=== PATIENT | male | born 1935 | race Caucasian/White ===

== ENCOUNTER 2024-12-09 14:15 | Outpatient (REF) | payer MEDICARE, MEDICAID, SELFPAY ==
[2024-12-09 18:27] LABS: Anion Gap 11 (12-20); Blood Urea Nitrogen 20 mg/dL (9-16); Calcium 9.5 mg/dL (8.4-10.2); Carbon Dioxide 28 mmol/L (22-29); Chloride 105 mmol/L (96-108); Estimated Glomerular Filt Rate > 60; Potassium 4.1 mmol/L (3.3-5.1); Sodium 140 mmol/L (135-145)
--- OUTSIDE RECORDS SUMMARY | 2024-12-09 18:41 | XMS_ITS | Encounter Summary ---
Author Organization [facility] Address [address] [facility] [address] [place] [address] Phone Care Team Providers Care Stopperer Assembler Name Role Phone Elena Chowdary MD Primary Care Provider [phone] Reason for Visit * Reason Comments Med Refill Encounter Details Date Type Department Care Team (Late st Contact Info) Description 10/28/2024 Refill [facility] [address] [facility] [address] [place] [id number] Jared Schwartz MD [address] [address] Social History Tobacco Use Types [...] Visit [facility] [address] [address] Yumiko Grande ARNP [address] [address] documented as of this encounter Visit Diagnoses Not on filedocumented in this encounter Care Teams Stopperer Assembler Relationship Specialty Start Date End Date Elena Chowdary MD [address] [place] [address], [address] [place] [address] PCP - General 10/25/20 documented as of this encounter
--- OUTSIDE RECORDS SUMMARY | 2024-12-09 18:41 | XMS_ITS | Clinical Summary ---
Author Organization [address] [place] [address] Address [address] [place] [address] Phone Care Team Providers Care Telecommunications Project Manager Name Role Phone Elena Chowdary MD Primary Care Provider [phone] Allergies Active Allergy Reactions Criticality Noted Date [...] Maintenance Insurance [employer] Care Teams Telecommunications Project Manager Relationship Specialty Start Date End Date Elena Chowdary MD PCP - General 06/20/17
--- OUTSIDE RECORDS SUMMARY | 2024-12-09 18:41 | XMS_ITS | Clinical Summary ---
Author Organization [facility] Address [address] [facility] [address] [place] [address] Phone Care Team Providers Care Apiculture Teacher Name Role Phone Elena Chowdary MD Primary Care Provider [phone] Allergies Active Allergy Reactions Criticality Noted Date [...] [place] [address] [place] [id number] Jared Schwartz MD from Last 3 Months [...] Office Visit [facility] [address] [address] Yumiko Grande ARNP [address] [phone] Health Maintenance Due Date Last Done Comments Pneumococcal Vaccine: 65+ Ye ars (2 of 2 - PCV) 12/13/2012 12/14/2011 Influenza Vaccine (#1) 2024 Hepatitis B Vaccine Aged Out No longe r eligible based on patient's age to complete this topic Insurance [employer] Care Teams Apiculture Teacher Relationship Specialty Start Date End Date Elena Chowdary MD [address] [place] [address], [address] [place] [address] PCP - General 10/25/20
== END 2024-12-09 14:16 | disposition home or self-care (01) ==
LOC: HO.HKASLDS 14:15
PROVIDERS: PCP Internal Medicine; Visit Provider Internal Medicine Nephrology
DX: I10 Essential (primary) hypertension (principal); Z79.899 Other long term (current) drug therapy
CPT/HCPCS: 36415; 80051; 82310; 82565; 84520; 99212

== ENCOUNTER 2024-12-09 14:15 | Outpatient (AMB) | payer MEDICARE, MEDICAID, SELFPAY ==
--- NOTE | 2024-12-09 14:18 | HO.NEPHOV_ITS ---
Vital Signs 12/09/24 14:22 Height 5 ft Weight 150 lb BMI 29.3 BP 140/90 H Blood Pressure Location Lt brachial Position Sitting Pulse 69 Pulse Source Pulse Oximeter Pulse Oximetry (%) 97 Oxygen Delivery Method Room Air Intake Visit Reasons: Transferring care from [facility] [employer] Repairer Required: No Allergies codeine Allergy (Verified 12/09/24 14:26) Unknown shellfish derived Allergy (Verified 12/09/24 14:21) Unknown HPI Comments Details: I had the pleasure of seeing Margie in follow-up her hypertension and renal cyst. She does not have any hematuria, urinary infections, flank pain or edema. She has no night sweats, fever or weight loss. She is compliant with her antihypertensive medications and her blood pressure has been goal. She does not take excessive nonsteroidal anti-inflammatories and maintain good hydration. She denied any headache ,double vision ,chest pressure, shortness of breath, proximal nocturnal dyspnea or orthostatic symptoms. She is compliant with her CPAP for SHANTEL. Otherwise she feels well. [facility] Medical History (Updated 12/09/24 @ 14:45 by Néstor Edwards MD) Renal cyst Hypertension Surgical History (Updated 12/09/24 @ 14:20 by Jacqui Howard MA) History of surgery on arm History of back surgery Family History (Updated 12/09/24 @ 14:19 by Jacqui Howard MA) Brother Heart disease Father Heart disease Social History (Updated 12/09/24 @ 14:18 by Jacqui Howard MA) Alcohol intake: never Patient Tobacco Use Status: Never used Tobacco Review of Systems Const All systems reviewed & are unremarkable except as noted in HPI and below Physical Exam Vital Signs: Last Vital Signs Pulse 69 12/09/24 14:22 BP 140/90 H 12/09/24 14:22 Pulse Ox 97 12/09/24 14:22 Oxygen Delivery Method Room Air 12/09/24 14:22 BMI result Body Mass Index 29.3 Const General: comfortable and no acute distress Orientation/consciousness: patient oriented x3 HEENT Head: Yes normocephalic Mouth: Normal oral and palatal mucosa present Eyes EOM: EOMs intact bilaterally Neck Neck: Yes supple Resp Auscultation: clear to auscultation bilaterally Cardio Jugular venous distension: no JVD Rate: regular rate GI Palpation (GI): Soft to palpation Auscultation: normal bowel sounds Skin General skin exam: no rashes or lesions noted Neuro General: patient oriented x3 and moves all extremities Extrem General: Yes no pedal edema Results Reviewed Nephrology Results: Sodium 140 mmol/L (135-145) 12/09/24 Potassium 4.1 mmol/L (3.3-5.1) 12/09/24 Chloride 105 mmol/L (96-108) 12/09/24 Carbon Dioxide 28 mmol/L (22-29) 12/09/24 BUN 20 mg/dL (9-16) H 12/09/24 Creatinine 0.77 mg/dL (0.5-1.4) 12/09/24 Calcium 9.5 mg/dL (8.4-10.2) 12/09/24 Assessment & Plan Assessment & Plan (1) Hypertension: Code(s): I10 - Essential (primary) hypertension Category: Medical Qualifiers: Hypertension type: primary hypertension Qualified Code(s): I10 - Essential (primary) hypertension Plan Margie has longstanding hypertension. Her weight is stable. She is on a low- sodium diet. Her renal functions are stable. She is on a low-sodium diet. She is compliant CPAP. Her volume status is optimal. She can continue current dose of labetalol, losartan and amlodipine. I shall arrange a follow-up renal ultrasound for renal cyst after next visit. She should maintain good hydration and minimize NSAID's. I did not make any medication changes today. I shall follow in 6 months unless there is any need prior to that. All questions answered. Orders: Orders Blood Urea Nitrogen 12/09/24 I10 - Essential (primary) hypertension Electrolytes 12/09/24 I10 - Essential (primary) hypertension Creatinine 12/09/24 I10 - Essential (primary) hypertension Calcium 12/09/24 I10 - Essential (primary) hypertension Coding Level of Care Code Est Pt Level 4 (53632) Diagnoses Primary hypertension I10 Hypertension type: primary hypertension
[2024-12-09 14:22] VITALS: BP 140/90; PULSE 69; O2SAT 97; BMI 29.3
--- OUTSIDE RECORDS SUMMARY | 2024-12-09 17:54 | XMS_ITS | Clinical Summary ---
Author Organization [address] [place] [address] [address] [place] [address] Phone Care Team Providers Care Locator Name Role Phone Elena Chowdary MD Primary Care Provider [phone] Allergies Active Allergy Reactions Criticality Noted Date Comments Codeine 08/30/2018 Shellfish Containing Products 2017 Medications cholecalciferol (VITAMIN D-3) 50 mcg (2,000 unit) capsule Take by mouth. Active budesonide-form oteroL (SYMBICORT) 80-4.5 mcg/actuation inhaler Inhale 2 Puffs into the lungs 2 times daily. Active omeprazole (PRILOSEC) 20 mg tablet,delayed release (DR/EC) Take 20 mg by mouth daily. Active multivitamin (MULTIPLE VITAMINS ORAL) Take by mouth. Active losartan (COZAAR) 50 mg tablet Take 1.5 tablets (75 mg total) by mouth 1 (one) time each day. Active aspirin 81 mg EC tablet Take 81 mg by mouth daily. Active amLODIPine (NORVASC) 5 mg tablet Take 5 mg by mouth daily. Active simvastatin (ZOCOR) 20 mg tablet Take 1 tablet (20 mg total) by mouth at bedtime. Active labetaloL (NORMODYNE) 200 mg tablet Take 1 Tab by mouth 2 times daily. 09/19/2018 Active Active Problems Problem Noted Date Diagnosed Date SHANTEL on CPAP 08/11/2024 Overview (08/11/2024): f/u Dr. Telles Essential hypertension 05/30/2023 Overview (08/11/2024): Last Assessment & Plan: Patient's blood pressure is well controlled on recheck. Her blood pressures been well controlled on chart review. She does admit that she has houseguest currently who is somewhat stressful for her. Continue her beta-duane, calcium channel duane and ARB. Assessment & Plan (08/21/2024 2:20 PM EST): Well-controlled during today's exam with a reading of 124/78.I have made no changes to her medications. She will continue on her current dose of amlodipine, losartan and labetalol. Educated on the importance of diet lifestyle to help further assist in reducing blood pressure. The patient was encouraged to follow low-salt low-fat diet, make purposeful strides towards weight loss, and engage in routine aerobic exercise as tolerated. Hyperlipidemia 05/30/2023 Overview (08/11/2024): Last Assessment & Plan: Well-controlled lipid profile on current dose statin. continue the same. Assessment & Plan (08/21/2024 2:21 PM EST): Continue on her current dose of statin therapy and be mindful of her dietary fat intake. Can consider updating fasting lipid profile prior to her next in office visit list already performed by her PCP. 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 She has no symptoms referable to her mitral stenosis. She will notify me if she develops any palpitations, shortness of breath or chest discomfort. Otherwise, we will continue periodic surveillance with an updated echocardiogram before her next visit. Assessment & Plan (08/21/2024 2:21 PM EST): Recent echocardiogram updated in May 2024 as outlined above. This did reveal mild to moderate mitral stenosis and mild regurgitation as outlined above. At this time patient remains asymptomatic. Will consider updating surveillance echocardiogram in 1 year to further evaluate progression. 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 Given her advanced age, she is unlikely to reach operative size and/or be an operative candidate. The patient understands and accepts this. We will continue periodic surveillance of her aorta on echocardiograms given her mitral stenosis. Pulmonary arterial hypertension 09/19/2021 Medical History Medical History Date Comments SHANTEL on CPAP DX:SHANTEL on CPAP; COMMENT: f/u Dr. Telles Family History Medical History Relation Name Comments cabg Brother heart ailment Father Relation Name Status Comments Brother Father Social History Tobacco Use Types Packs/Day Years Used Date Smoking Tobacco: Never Smokeless Tobacco: Never Alcohol Use Standard Drinks/Week Comments Not Currently 0 (1 standard drink = 0.6 oz pur e alcohol) Comments Unknown Sex and Gender Information Value Date Recorded Sex Assigned at Not on file Legal Sex Female 1:06 AM EST Gender Identity Not on file Sexual Orientation Not on file Obstetrics History Last Filed Vital Signs Vital Sign Reading Time Taken Comments Blood Pressure 124/78 08/21/2024 1:47 PM EST Pulse 71 08/21/2024 1:47 PM EST Temperature - - Respiratory Rate - - Oxygen Saturation 98% 08/21/2024 1:47 PM EST Inhaled Oxygen Concentration - - Weight 68.8 kg (151 lb 9.6 oz) 08/21/2024 1:47 P M EST Height 152.4 cm (5') 08/21/2024 1:47 PM EST Body Mass Index 29.61 08/21/2024 1:47 PM EST Plan of Treatment Health Maintenance Due Date Last Done Comments DTaP,Tdap,and Td Vaccines (1 - Tdap) 1954 RSV Immunization Patients 60+ Years Old (1 - 1-dose 75+ series) 2010 Pneumococcal Vaccine: 50+ Years (2 of 2 - PCV) 12/13/2012 12/14/2011 Zoster Vaccines (2 of 3) 09/15/2013 07/21/2013 Depression Screening 09/17/2022 Falls Risk Assessment 09/17/2022 Medicare Annual Wellness Visit 09/17/2022 Osteoporosis Screening (Bone Density Screening) 09/17/2022 Social Influencers of Health Screening 09/17/2022 Hypertension/CHF/CAD Annual BMP Blood Test 11/14/2023 Cholesterol Screening (Lipid Panel) 12/14/2026 12/14/2021 Influenza Vaccine Completed 07/21/2024, , 07/26/2022, Additional history exists COVID-19 Vaccine Completed 08/12/2024, , 09/20/2022, Additional history exists HIB Vaccines Aged Out No longer eligi ble based on patient's age to complete this topic HPV Vaccines Aged Out No longer eligi ble based on patient's age to complete this topic Hepatitis A Vaccines Aged Out No long er eligible based on patient's age to complete this topic Hepatitis B Vaccines Aged Out No long er eligible based on patient's age to complete this topic IPV Vaccines Aged Out No longer eligi ble based on patient's age to complete this topic MMR Vaccines Aged Out No longer eligi ble based on patient's age to complete this topic Meningococcal ACWY Vaccine Aged Out N o longer eligible based on patient's age to complete this topic Meningococcal B Vacine Aged Out No lo nger eligible based on patient's age to complete this topic RSV Immunization Patients Under 20 months Aged Out No longer eligible based on patient's age to complete this topic Varicella Vaccines Aged Out No longer eligible based on patient's age to complete this topic Procedures Procedure Name Priority Date/Time Associated Diagnosis Comments LIPID PANEL Routine 12/14/2021 from Last 3 Months or Most Recently Relevant to Health Maintenance Results * (ABNORMAL) Lipid panel (12/14/2021) LDL/HDL Ratio 3 <=5 Triglycerides 138 <=150 mg/dL Cholesterol 187 <=200 mg/dL HDL 56 >=50 mg/dL LDL Cholesterol 131(A) <=130 mg/dL Blood Venous blood specimen / Unknown Historical Provider LAB BLOOD ORDERABLES Olivia l Result from Last 3 Months or Most Recently Relevant to Health Maintenance Insurance [employer] Care Teams Locator Relationship Specialty Start Date End Date Elena Chowdary MD PCP - General 06/20/17
--- OUTSIDE RECORDS SUMMARY | 2024-12-09 17:54 | XMS_ITS | Clinical Summary ---
Author Organization [facility] Address [address] [facility] [address] [place] [address] Phone Care Team Providers Care Transplant Rn Name Role Phone Elena Chowdary MD Primary Care Provider [phone] Allergies Active Allergy Reactions Criticality Noted Date Comments Codeine Other (see comments) 04/13/2021 Shellfish Allergy 08/30/2018 Medications allopurinol (ZYLOPRIM) 100 MG tablet Take 1 tablet by mouth 1 (one) time each day Active aspirin (ST WINTER) 81 MG EC tablet Take 1 tablet by mouth 1 (one) time each day Active budesonide-form oterol (SYMBICORT) 80-4.5 MCG/ACT inhaler 2 puffs by Other route 2 (two) times a day 03/04/2019 Active Calcium Carbonate-Vitam in D 600-200 MG-UNIT capsule Take 1 capsule by mouth 2 (two) times a day Active labetalol (NORMODYNE) 200 MG tablet Take 1 tablet by mouth 2 (two) times a day Active omeprazole (PriLOSEC) [address] capsule Take 1 capsule by mouth 1 (one) time each day Active simvastatin (ZOCOR) 20 MG tablet Take 1 tablet by mouth every night Active Probiotic Product (PROBIOTIC-10 PO) Take 1 tablet by mouth 1 (one) time each day Active Cholecalciferol 50 MCG (2000 UT) capsule Take 1 tablet by mouth 1 (one) time each day Active amLODIPine (NORVASC) 5 MG tablet TAKE 1 TABLET BY MOUTH EVERY DAY 90 tablet 5 08/29/2023 Active losartan (COZAAR) 50 MG tablet Take 1.5 tablets (75 mg total) by mouth 1 (one) time each day 135 tablet 3 12/02/2023 Active Active Problems Problem Noted Date Diagnosed Date Hypertension 06/07/2023 Hyperlipidemia 05/30/2023 06/07/2023 Overview (06/07/2023): Last Assessment & Plan: Well-controlled lipid profile on current dose statin. continue the same. Nonrheumatic mitral valve stenosis 05/30/2023 06/07/2023 Overview (06/07/2023): Last Assessment & Plan: The patient has mild mitral stenosis and mild much regurgitation with a calcific valve. She has no symptoms referable to her mitral stenosis. She will notify me if she develops any palpitations, shortness of breath or chest discomfort. Otherwise, we will continue periodic surveillance with an updated echocardiogram before her next visit. 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 Given her advanced age, she is unlikely to reach operative size and/or be an operative candidate. The patient understands and accepts this. We will continue periodic surveillance of her aorta on echocardiograms given her mitral stenosis. Obstructive sleep apnea syndrome 04/11/2022 Overview (04/11/2022): f/u Dr. Telles Pulmonary arterial hypertension 09/19/2021 Benign essential hypertension 04/13/2021 Chronic kidney disease stage 3 04/13/2021 Multiple renal cysts 04/13/2021 Encounters Date Type Department Care Team Description 10/28/2024 Refill [facility] [address] [place] [id number] Jared Schwartz MD from Last 3 Months Immunizations Name Administration Dates Next Due Pneumococcal Polysaccharide 12/14/2011 Family History Medical History Relation Comments Heart disease Father Gout Mother Hypertension Mother Kidney disease Mother Heart disease Sibling 1 Hypertension Sibling 2 Relation Status Comments Father Mother Alive Sibling 1 Sibling 2 Social History Tobacco Use Types Packs/Day Years Used Date Smoking Tobacco: Never Smokeless Tobacco: Never Tobacco Cessation:Counseling Given: Not Answered Alcohol Use Standard Drinks/Week Comments No 0 (1 standard drink = 0.6 oz pur e alcohol) Comments Unknown Sex and Gender Information Value Date Recorded Sex Assigned at Not on file Legal Sex Female 5:03 PM EST Gender Identity Not on file Sexual Orientation Not on file Last Filed Vital Signs Vital Sign Reading Time Taken Comments Blood Pressure 110/70 06/07/2023 3:22 PM EDT Pulse 61 06/07/2023 3:22 PM EDT Temperature - - Respiratory Rate - - Oxygen Saturation 98% 04/19/2021 1:05 PM EDT Inhaled Oxygen Concentration - - Weight 73.8 kg (162 lb 12.8 oz) 06/07/2023 3:22 PM EDT Height 152.4 cm (5') 04/08/2020 12:00 PM EDT Body Mass Index 31.79 04/08/2020 12:00 PM EDT Plan of Treatment Upcoming Encounters Date Type Department Care Team (Late st Contact Info) Description 12/10/2024 3:15 PM EST Office [facility] [address] [address] Yumiko Grande ARNP [address] [phone] Health Maintenance Due Date Last Done Comments Pneumococcal Vaccine: 65+ Ye ars (2 of 2 - PCV) 12/13/2012 12/14/2011 Influenza Vaccine (#1) 2024 Hepatitis B Vaccine Aged Out No longe r eligible based on patient's age to complete this topic Insurance [employer] Care Teams Transplant Rn Relationship Specialty Start Date End Date Elena Chowdary MD [address] [place] [address], [address] [place] [address] PCP - General 10/25/20
--- OUTSIDE RECORDS SUMMARY | 2024-12-09 17:54 | XMS_ITS | Encounter Summary ---
Author Organization [facility] Address [address] [facility] [address] [place] [address] Phone Care Team Providers Care Cryptanalyst Name Role Phone Elena Chowdary MD Primary Care Provider [phone] Reason for Visit * Reason Comments Med Refill Encounter Details Date Type Department Care Team (Late st Contact Info) Description 10/28/2024 Refill [facility] [address] [facility] [address] [place] [phone] Jared Schwartz MD [address] [address] Social History Tobacco Use Types Packs/Day Years Used Date Smoking Tobacco: Never Smokeless Tobacco: Never Alcohol Use Standard Drinks/Week Comments No 0 (1 standard drink = 0.6 oz pur e alcohol) Comments Unknown Sex and Gender Information Value Date Recorded Sex Assigned at Not on file Legal Sex Female 5:03 PM EST Gender Identity Not on file Sexual Orientation Not on file documented as of this encounter Plan of Treatment Upcoming Encounters Date Type Department Care Team (Late st Contact Info) Description 12/10/2024 3:15 PM EST Office Visit [facility] [address] [address] Yumiko Grande ARNP [address] [address] documented as of this encounter Visit Diagnoses Not on filedocumented in this encounter Care Teams Cryptanalyst Relationship Specialty Start Date End Date Elena Chowdary MD [address] [place] [address], [address] [place] [address] PCP - General 10/25/20 documented as of this encounter
--- OUTSIDE RECORDS SUMMARY | 2024-12-09 17:54 | XMS_ITS ---
Author Organization [facility] Address [address] [place] [address] Care Team Providers Care Waste Machine Offbearer Name Role Phone MANSOOR VILLALPANDO Primary Care Provider REASON FOR VISIT Refill - Amlodipine & Losartan MEDICATIONS Medication SIG (Take, Route, Frequency, Duration) Notes Start Date End Date Status Losartan Potassium 25 MG 1 tablet Orally Once a day for 30 day(s) Active amLODIPine Besylate 5 MG 1 tablet Orally Once a day for 30 day(s) Active Encounters Encounter Location Date Provider Diagnosis [address] [place] [phone] 12/02/2024 MANSOOR VILLALPANDO PLAN OF TREATMENT Medication Medication Name Sig Start Date Stop Date Notes Losartan Potassium 25 MG 1 tablet Orally Once a day for 30 day(s) amLODIPine Besylate 5 MG 1 tablet Orally Once a day for 30 day(s) Next Appt Details Provider Name:MANSOOR VILLALPANDO, 10:30:00 AM, [address] , [place], [address], Progress Notes * Margie LOPEZDOB: [birth year] (88 yo F)Acc No.[id number]:12/02/2024 Patient:??JOHNFrankmendez :1935?Age:88 Y?Sex:Fe male Address:[address] [place] [address] * Refills?? Refill amLODIPine Besylate Tablet, 5 MG, Orally, 30, 1 tablet, Once a day, 30 day(s) Refill Losartan Potassium Tablet, 25 MG, Orally, 30, 1 tablet, Once a day, 30 day(s) * true * Date:??
--- OUTSIDE RECORDS SUMMARY | 2024-12-09 17:54 | XMS_ITS ---
Author Organization [facility] Address [address] [place] [address] Care Team Providers Care Antenna Design Engineer Name Role Phone MANSOOR VILLALPANDO Primary Care Provider MEDICATIONS Medication SIG (Take, Route, Frequency, Duration) Notes Start Date End Date Status Losartan Potassium 25 MG 1 tablet Orally Once a day for 90 days Active Encounters Encounter Location Date Provider Diagnosis [facility] [address] [place] [address] 12/03/2024 [facility] PLAN OF TREATMENT Medication Medication Name Sig Start Date Stop Date Notes Losartan Potassium 25 MG 1 tablet Orally Once a day for 90 days Next Appt Details Provider Name:MANSOOR VILLALPANDO, 10:30:00 AM, [address], [place], [address], Progress Notes * Margie MASSEYDOB: [birth year] (88 yo F)Acc No.[id number]:12/03/2024 Patient:??Margie MASSEY :1935?Age:88 Y?Sex:Fe male Address:[address] [place] [address] * Refills?? Refill Losartan Potassium Tablet, 25 MG, Orally, 90 Tablet, 1 tablet, Once a day, 90 days, Refills=3 * true * Date:??
--- OUTSIDE RECORDS SUMMARY | 2024-12-09 17:54 | XMS_ITS ---
Author Organization [facility] Address [address] [place] [address] Care Team Providers Care Fabrics And Material Cutter Name Role Phone MANSOOR VILLALPANDO Primary Care Provider [phone] REASON FOR VISIT Refills Encounters Encounter Location Date Provider Diagnosis [facility] [address] [place] [address] 12/04/2024 MANSOOR VILLALPANDO PLAN OF TREATMENT Next Appt Details Provider Name:MANSOOR VILLALPANDO, 10:30:00 AM, [address], [place], [address], Progress Notes * Margie LOPEZDOB: [birth year] (88 yo F)Acc No.[id number]:12/04/2024 Patient:??Margie LOPEZ :1935?Age:88 Y?Sex:Fe male Address:[address] [place] [address] * true * Date:??
--- OUTSIDE RECORDS SUMMARY | 2024-12-09 17:55 | XMS_ITS | Patient Health Record ---
Author Organization [facility] Address [address] [place] [address] Care Team Providers Care Rolled Gold Plater Name Role Phone MANSOOR VILLALPANDO Primary Care Provider [phone] SHUKRI VILLALPANDO Unavailable [phone] GIOVANI FLORES Unavailable [phone] ALLERGIES Allergen (clinical drug ingredient) Drug/Non Drug Allergy documented on EMR Reaction Allergy Type Onset Date Status codeine codeine (uncoded) Unknown Allergy Ac tive Shellfish (FN) shellfish (uncoded) Unknown Allergy Active REASON FOR REFERRAL Reason ATI - PT & OT Diagnosis 1 Displaced fracture o f proximal end of humerus (S42.209A) Referral Organization [facility] 119 Referring Provider First Name GIOVANI Referring Provider Last Name MARK Referring Provider Speciality Internal M edicine Referred Provider Specialty Physical The rapist General Notes AJAY CASTILLO 01/16 08:30:50 AM > Clinical Notes Pt cannot do outpati ent care Referral Priority Routine Reason Pt requesting physic al therapy and wants at home services Diagnosis 1 Displaced fracture o f proximal end of humerus (S42.209A) Referral Organization [facility] Referring Provider First Name MANSOOR Referring Provider Last Name KWASI Referring Provider Speciality Internal M edicine Referred Provider Specialty Physical The rapist General Notes will be sending refe rral to [facility], tel - , fax- [phone] Clinical Notes Shu Adams 01/16 12:03:07 PM > Referral Priority Routine MEDICATIONS Medication SIG (Take, Route, Frequency, Duration) Notes Start Date End Date Status Multi For Her 50+ - as directed Orally Active Labetalol HCl 200 MG 1 tablet Orally Twi ce a day for 90 days Active Omeprazole 20 MG 1 capsule Orally Onc e a day for 90 days 09/23/2018 Active Simvastatin 20 MG 1 tablet in the even ing Orally Once a day for 90 days Active Clotrimazole-Betamethasone 1-0.05 % 1 application Externally tid for 14 days Active amLODIPine Besylate 5 MG 1 tablet Orally Once a day for 30 day(s) Active IMMUNIZATIONS Vaccine Route Administration Date Status Comme nts influenza IM Intramuscular 07/20/2020 Administered SOCIAL HISTORY Tobacco Use: Social History Observation Description Date Details (start date - stop date) Never Smoker NA - NA Sex Assigned At : Social History Observation Description Sex Assigned At Unknown Tobacco Use/Smoking Question Answer Notes Are you a nonsmoker PROBLEMS Problem Type ICD Code Onset Dates Problem Status W/U Status Risk SNOMED Code Notes Problem Vitamin D deficiency, unspecified (E55.9) Active confirmed 02618987 Problem Hyperlipidemia, unspecified (E78.5) Active confirmed Hyperlipidemia (53935632) Problem Otitis externa in other diseases classified elsewhere, left ear (H62.42) Active confirmed Otitis externa of left ear (4994422087878493 ) Problem Essential (primary) hypertension (I10) Active confirmed Essential hypertension (66516625) Problem Encounter for screening for lipoid disorders (Z13.220) Active confirmed Lipid screening (427157865) Problem Other specified counseling (Z71.89) Active confirmed Counseling (898871232) Problem Obstructive sleep apnea syndrome (G47.33) Active confirmed Obstructive sle ep apnea syndrome (24484315) Problem Adult general medical exam (Z00.00) Active confirmed Adult health examination (549282161) Problem Obesity (BMI 30.0-34.9) (E66.9) Active confirmed Obesity (887885903) Problem Vitamin D deficiency (E55.9) Active confirmed Vitamin D deficiency (91140648) Problem Accelerated essential hypertension (I10) Active confirmed Accelerated essential hypertension (57432622) Problem 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 confirmed Mixed hyperlipidemia (562699056) Problem Adult-onset obesity (E66.9) Active confirmed Adult-onset obesity (135114698) Problem Pulmonary arterial hypertension (I27.21) Active confirmed 35154318 Problem SHANTEL on CPAP (G47.33) Active confirmed Obstructive sle ep apnea syndrome (32208673) Problem Displaced fracture of proximal end of humerus (S42.209A) Active confirmed 596355517 VITAL SIGNS Heart Rate 76 /min 08/27/2024 Oximetry 98 % 08/27/2024 Blood pressure diastolic 80 mm Hg 08/27/2024 Height 59 in 08/27/2024 Blood pressure systolic 126 mm Hg 08/27/2024 Weight 150.0 lbs 08/27/2024 BMI 30.29 kg/m2 08/27/2024 Encounters Encounter Location Date Provider Diagnosis [facility] [address] [place] [address] 01/17/2024 SHUKRI VILLALPANDO [facility] [address] [place] [address] 01/12/2024 GIOVANI FLORES Displaced fracture o f proximal end of humerus S42.209A and Left elbow pain M25.522 [facility] [address] [place] [address] 02/27/2024 MANSOOR VILLALPANDO Hyperlipidemia, unspecified E78.5 ; Vitamin D deficiency, unspecified E55.9 and SHANTEL on CPAP G47.33 [facility] [address] [place] [address] 08/27/2024 MANSOOR VILLALPANDO Adult general medica l exam Z00.00 and Other specified counseling Z71.89 [facility] [address] [place] [address] 12/25/2023 SHUKRI VILLALPANDO [address] [place] [address] 12/28/2023 MANSOOR VILLALPANDO [address] [place], [place] 01/14/2024 MANSOOR VILLALPANDO [facility] [address] [place] [address] 01/17/[address] [place] [address] 01/17/2024 GIOVANI FLORES [facility] [address] [place] [address] 01/21/[address] [place] [address] 02/04/2024 MANSOOR VILLALPANDO [facility] [address] [place] [address] 03/13/[address] [facility] [address] [place] [address] 05/14/2024 MANSOOR VILLALPANDO [address] [place] [address] 05/26/[address] [facility] [address] [place] [address] 06/03/[address] [place] [address] 08/29/2024 SHUKRI VILLALPANDO [address] [place] [address] 12/02/[address] [facility] [address] [place] [address] 12/03/[address] [facility] [address] [place] [address] 12/04/2024 MANSOOR VILLALPANDO ASSESSMENTS Encounter Date Diagnosis Assessment Notes Treatment Notes Treatment Clinical Notes Section Notes 01/12/2024 Left elbow pain (ICD-10 - M25.522) Referral to [facility] Referral for home OT and PT Pain is adequately controlled at this time Visit next week for ear lavage Of note, some information is being carried forward from prior records for informational purposes only and is being cited so that efficiency, safety and quality of the patient's care is not compromised This note was prepared using voice recognition software and direct typing Please excuse inadvertent surgery center administrator or typing errors, or uncorrected word substitutions Although every attempt has been made by the provider to proofread this document, occasional misspellings and typographical errors may still be present Due to the previous pandemic, and the use of personal protective equipment (PPE) This may decrease voice recognition accuracy Inadvertent surgery center administrator errors may occur 01/12/2024 Displaced fracture of proximal end of humerus (ICD-10 - S42.209A) Referral to [facility] Referral for home OT and PT Pain is adequately controlled at this time Visit next week for ear lavage Of note, some information is being carried forward from prior records for informational purposes only and is being cited so that efficiency, safety and quality of the patient's care is not compromised This note was prepared using voice recognition software and direct typing Please excuse inadvertent surgery center administrator or typing errors, or uncorrected word substitutions Although every attempt has been made by the provider to proofread this document, occasional misspellings and typographical errors may still be present Due to the previous pandemic, and the use of personal protective equipment (PPE) This may decrease voice recognition accuracy Inadvertent surgery center administrator errors may occur 02/27/2024 Vitamin D deficiency, unspecified (ICD-10 - E55.9) Patient lives independently, more than 10 years ago, is in touch with her son Nico, has good neighbors feels comfortable with her living arrangement. Health care proxy is her nephew in [place]/will bring health care proxy/MOLST form on next appointment. #Obesity: Discussed lifestyle modifications #Renal cysts on the CAT scan lung in March 2019, renal ultrasound in July 2019 discussed the renal ultrasound in February 2020 - it reveals new multiple bilateral renal cysts and nonobstructing stone, sees Dr. Edwards/nephrologi . #Lumbar back pain for a week in the setting of back surgery in 2010: #Leg cramps, chronic: Discussed hydration, stretching, remedies. #Obstructive sleep apnea : Keeps the mask on for 4 hours every night/unable due to elbow fracture since , pulm aware #Hypertension, chronic, stable, sees final assembly inspector(hist ory of [facility]), blood pressure within normal limits, continue the same medications. #Hyperlipidemia: Fasting lipid panel in February 2019 at goal, on simvastatin 20 mg daily. #GERD on chronic omeprazole 20 mg daily. PHYSICAL EXAM General: Age appropriate (), well appearing, no acute distress, speaking in full sentences without respiratory compromise. Well groomed, well developed. Skin: Warm, dry and intact. No lesions/rashes. HEENT: Normocephalic/atr aumatic. EOMI intact. PERRLA. Vision intact. No ptosis or lid lag. Nares without discharge or inflammation. Oral cavity free of plaques or exudates. Dentition well maintained. No pharyngeal erythema. Neck/Thyroid: Supple, with no lymphadenopathy. No carotid artery bruits auscultated. Thyroid free of nodules. Nonenlarged Lung: Clear to auscultation bilaterally, no wheezes, rales or rhonchi. No barrel chest. Cardiac: S1 and S2 appreciated. No murmurs/rubs or gallops. DP pulses intacts 2+ bilaterally. Abdomen: Soft, nontender, normoactive bowel sounds. No reboung/guarding. No CVA tenderness. Extremities: Bilateral lower extremities with no edema or rubor. No evidence of varicose veins. MSK: Bilateral upper and lower extremities 5/5 strenght with flexion/extension . Merchant Tailor strength 5/5. Neuro: CN II-XI grossly intact. Steady gait with ambulation observed. Psych: Stable mood and affect 02/27/2024 Hyperlipidemia, unspecified (ICD-10 - E78.5) Patient lives independently, more than 10 years ago, is in touch with her son Nico, has good neighbors feels comfortable with her living arrangement. Health care proxy is her nephew in [place]/will bring health care proxy/MOLST form on next appointment. #Obesity: Discussed lifestyle modifications #Renal cysts on the CAT scan lung in March 2019, renal ultrasound in July 2019 discussed the renal ultrasound in February 2020 - it reveals new multiple bilateral renal cysts and nonobstructing stone, sees Dr. Edwards/nephrologmelvi espino. #Lumbar back pain for a week in the setting of back surgery in 2010: #Leg cramps, chronic: Discussed hydration, stretching, remedies. #Obstructive sleep apnea : Keeps the mask on for 4 hours every night/unable due to elbow fracture since , pulm aware #Hypertension, chronic, stable, sees final assembly inspector(hist ory of JACK), blood pressure within normal limits, continue the same medications. #Hyperlipidemia: Fasting lipid panel in February 2019 at goal, on simvastatin 20 mg daily. #GERD on chronic omeprazole 20 mg daily. PHYSICAL EXAM General: Age appropriate (), well appearing, no acute distress, speaking in full sentences without respiratory compromise. Well groomed, well developed. Skin: Warm, dry and intact. No lesions/rashes. HEENT: Normocephalic/atr aumatic. EOMI intact. PERRLA. Vision intact. No ptosis or lid lag. Nares without discharge or inflammation. Oral cavity free of plaques or exudates. Dentition well maintained. No pharyngeal erythema. Neck/Thyroid: Supple, with no lymphadenopathy. No carotid artery bruits auscultated. Thyroid free of nodules. Nonenlarged Lung: Clear to auscultation bilaterally, no wheezes, rales or rhonchi. No barrel chest. Cardiac: S1 and S2 appreciated. No murmurs/rubs or gallops. DP pulses intacts 2+ bilaterally. Abdomen: Soft, nontender, normoactive bowel sounds. No reboung/guarding. No CVA tenderness. Extremities: Bilateral lower extremities with no edema or rubor. No evidence of varicose veins. MSK: Bilateral upper and lower extremities 5/5 strenght with flexion/extension . Merchant Tailor strength 5/5. Neuro: CN II-XI grossly intact. Steady gait with ambulation observed. Psych: Stable mood and affect 08/27/2024 Adult general medical exam (ICD-10 - Z00.00) Medicare Wellness Patient seen and examined. Patient is here for Medicare wellness examination. I reviewed standard Medicare wellness paperwork including PHQ-9, list of medications, allergies,family history, social history, surgical history, and paperwork is scanned separately. I screened the patient for current standard preventive protocols and discussed role of colonoscopy, bone density,age appropriate immunizations including pneumonia vaccine, flu and COVID vaccine, new RSV vaccine and shingles vaccine. We discussed at length role of healthcare proxy. Having a healthcare proxy is important for decision making. Patient provided with healthcare proxy paperwork. Discussion started on end-of-life issues and [place] order of life-sustaining treatment. 02/27/2024 SHANTEL on CPAP (ICD-10 - G47.33) Patient lives independently, more than 10 years ago, is in touch with her son Nico, has good neighbors feels comfortable with her living arrangement. Health care proxy is her nephew in [place]/will bring health care proxy/MOLST form on next appointment. #Obesity: Discussed lifestyle modifications #Renal cysts on the CAT scan lung in March 2019, renal ultrasound in July 2019 discussed the renal ultrasound in February 2020 - it reveals new multiple bilateral renal cysts and nonobstructing stone, sees Dr. Edwards/nephrologmelvi [place]ags[place] #Lumbar back pain for a week in the setting of back surgery in 2010: #Leg cramps, chronic: Discussed hydration, stretching, remedies. #Obstructive sleep apnea : Keeps the mask on for 4 hours every night/unable due to elbow fracture since , pulm aware #Hypertension, chronic, stable, sees final assembly inspector(hist ory of JACK), blood pressure within normal limits, continue the same medications. #Hyperlipidemia: Fasting lipid panel in February 2019 at goal, on simvastatin 20 mg daily. #GERD on chronic omeprazole 20 mg daily. PHYSICAL EXAM General: Age appropriate (), well appearing, no acute distress, speaking in full sentences without respiratory compromise. Well groomed, well developed. Skin: Warm, dry and intact. No lesions/rashes. HEENT: Normocephalic/atr aumatic. EOMI intact. PERRLA. Vision intact. No ptosis or lid lag. Nares without discharge or inflammation. Oral cavity free of plaques or exudates. Dentition well maintained. No pharyngeal erythema. Neck/Thyroid: Supple, with no lymphadenopathy. No carotid artery bruits auscultated. Thyroid free of nodules. Nonenlarged Lung: Clear to auscultation bilaterally, no wheezes, rales or rhonchi. No barrel chest. Cardiac: S1 and S2 appreciated. No murmurs/rubs or gallops. DP pulses intacts 2+ bilaterally. Abdomen: Soft, nontender, normoactive bowel sounds. No reboung/guarding. No CVA tenderness. Extremities: Bilateral lower extremities with no edema or rubor. No evidence of varicose veins. MSK: Bilateral upper and lower extremities 5/5 strenght with flexion/extension . Merchant Tailor strength 5/5. Neuro: CN II-XI grossly intact. Steady gait with ambulation observed. Psych: Stable mood and affect 08/27/2024 Other specified counseling (ICD-10 - Z71.89) Medicare Wellness Patient seen and examined. Patient is here for Medicare wellness examination. I reviewed standard Medicare wellness paperwork including PHQ-9, list of medications, allergies,family history, social history, surgical history, and paperwork is scanned separately. I screened the patient for current standard preventive protocols and discussed role of colonoscopy, bone density,age appropriate immunizations including pneumonia vaccine, flu and COVID vaccine, new RSV vaccine and shingles vaccine. We discussed at length role of healthcare proxy. Having a healthcare proxy is important for decision making. Patient provided with healthcare proxy paperwork. Discussion started on end-of-life issues and [place] order of life-sustaining treatment. PLAN OF TREATMENT Pending Test Test Name Order Date Mammogram 07/19/2022 Vitamin D, 25-Hydroxy 11/19/2018 Lipid Panel 12/02/2020 Comp. Metabolic Panel (14) 12/02/2020 CBC 12/02/2020 EKG 03/14/2019 25OH VITAMIN D 07/14/2019 25OH VITAMIN D 12/02/2020 BASIC METABOLIC PANEL 07/20/2020 CBC (COMPLETE BLOOD COUNT) 07/14/2019 CBC (COMPLETE BLOOD COUNT) 11/19/2018 COMPREHENSIVE METABOLIC PANEL 11/19/2018 COMPREHENSIVE METABOLIC PANEL 07/14/2019 LIPID PANEL 07/14/2019 LIPID PANEL 11/19/2018 LIPID PANEL, STANDARD 02/27/2024 LIPID PANEL, STANDARD 08/27/2024 COMPREHENSIVE METABOLIC PANEL 08/27/2024 COMPREHENSIVE METABOLIC PANEL 02/27/2024 COMPREHENSIVE METABOLIC PANEL 03/24/2022 CBC (INCLUDES DIFF/PLT) 03/24/2022 CBC (INCLUDES DIFF/PLT) 02/27/2024 CBC (INCLUDES DIFF/PLT) 08/22/2023 CBC (INCLUDES DIFF/PLT) 08/27/2024 VITAMIN D,25-OH,TOTAL,IA 08/27/2024 VITAMIN D,25-OH,TOTAL,IA 02/27/2024 US Renal 07/30/2019 US Renal 07/14/2019 Next Appt Details Provider Name:PATRICIAHOOD KWASI, 10:30:00 AM, [address], [place], [address], Insurance Providers Payer Name Payer Address Payer Phone Subscriber Number Group Number Insured Name Patient Relationship to Insured Coverage Start Date Coverage End Date [employer] Preferred [address] [place] [address] [id number] Lenny glez, Margie Self - patient is the insured 7 [employer] [place] [address] [place] [address] [id number] Lenny os, Domna Self - patient is the insured MEDICAL (GENERAL) HISTORY Medical History History ICD Code anemia esophageal reflux Gout hypertension vitamin D deficiency hyperlipidemia Surgical History Surgery Date(Month/Year) appendectomy back surgery colonoscopy 6 years ORIF of olecranon fracture 12/21/23 left closed management of 4-part proxima l humerus fracture 12/21/23
== END 2024-12-09 14:59 | disposition home or self-care (01) ==
PROVIDERS: PCP Internal Medicine; Visit Provider Internal Medicine Nephrology
DX: I10 Essential (primary) hypertension (principal)
CPT/HCPCS: 99214

== ENCOUNTER 2025-06-09 12:03 | Outpatient (AMB) | payer MEDICARE, MEDICAID, SELFPAY ==
--- NOTE | 2025-06-09 12:09 | HO.NEPHOV_ITS ---
Vital Signs 06/09/25 12:11 Height 5 ft Weight 141 lb 2 oz BMI 27.6 BP 102/70 Blood Pressure Location Lt brachial Position Sitting Pulse 73 Pulse Source Pulse Oximeter Pulse Oximetry (%) 97 Oxygen Delivery Method Room Air Intake Visit Reasons: 6mon [id number] Corporate Receptionist Required: No Accompanied by: Self / Same As Patient Allergies codeine Allergy (Verified 06/09/25 12:11) Unknown shellfish derived Allergy (Verified 06/09/25 12:11) Unknown HPI Comments Details: I had the pleasure of seeing Margie in follow-up her hypertension and renal cyst. She does not have any hematuria, urinary infections, flank pain or edema. She has no night sweats, fever or weight loss. She is compliant with her antihypertensive medications and her blood pressure has been goal. She does not take excessive nonsteroidal anti-inflammatories and maintain good hydration. She denied any headache ,double vision ,chest pressure, shortness of breath, proximal nocturnal dyspnea or orthostatic symptoms. She is compliant with her CPAP for SHANTEL. She had a syncope. Otherwise she feels well. [facility] Medical History (Updated 12/09/24 @ 14:45 by Néstor Edwards MD) Renal cyst Hypertension Surgical History History of surgery on arm History of back surgery Family History Brother Heart disease Father Heart disease Social History Alcohol intake: never Patient Tobacco Use Status: Never used Tobacco Review of Systems Const All systems reviewed & are unremarkable except as noted in HPI and below Physical Exam Vital Signs: Last Vital Signs Pulse 73 06/09/25 12:11 BP 102/70 06/09/25 12:11 Pulse Ox 97 06/09/25 12:11 Oxygen Delivery Method Room Air 06/09/25 12:11 BMI result Body Mass Index 27.6 Const General: comfortable and no acute distress Orientation/consciousness: patient oriented x3 HEENT Head: Yes normocephalic Mouth: Normal oral and palatal mucosa present Eyes EOM: EOMs intact bilaterally Neck Neck: Yes supple Resp Auscultation: clear to auscultation bilaterally Cardio Jugular venous distension: no JVD Rate: regular rate GI Palpation (GI): Soft to palpation Auscultation: normal bowel sounds General: Yes no CVA tenderness Back/Spine/Pelvis Back: no CVA tenderness Skin General skin exam: no rashes or lesions noted Neuro General: patient oriented x3 and moves all extremities Extrem General: Yes no pedal edema Results Reviewed Nephrology Results: Sodium, (135-145) 140 mmol/L 12/09/24 Potassium, (3.3-5.1) 4.1 mmol/L 12/09/24 Chloride, (96-108) 105 mmol/L 12/09/24 Carbon Dioxide, (22-29) 28 mmol/L 12/09/24 BUN, (9-16) 20 mg/dL H 12/09/24 Creatinine, (0.5-1.4) 0.77 mg/dL 12/09/24 Calcium, (8.4-10.2) 9.5 mg/dL 12/09/24 Assessment & Plan Assessment & Plan (1) Hypertension: Code(s): I10 - Essential (primary) hypertension Category: Medical Qualifiers: Hypertension type: primary hypertension Qualified Code(s): I10 - Essential (primary) hypertension Plan Margie has longstanding hypertension. Her weight is stable. She is on a low- sodium diet. Her renal functions had been stable. She is on a low-sodium diet. She is compliant CPAP. Her volume status is optimal. She can continue current dose of labetalol, losartan and amlodipine. I shall arrange a follow-up renal ultrasound for renal cyst with time. She should maintain good hydration and minimize NSAID's. I did not make any medication changes today. I shall follow in 6 months unless there is any need prior to that. All questions answered. Orders: Orders Creatinine 7 Months I10 - Essential (primary) hypertension Blood Urea Nitrogen 7 Months I10 - Essential (primary) hypertension Electrolytes 7 Months I10 - Essential (primary) hypertension Coding Level of Care Code Est Pt Level 4 (38654) Diagnoses Primary hypertension I10 Hypertension type: primary hypertension
[2025-06-09 12:11] VITALS: BP 102/70; PULSE 73; O2SAT 97; BMI 27.6
--- OUTSIDE RECORDS SUMMARY | 2025-06-09 12:56 | XMS_ITS | Encounter Summary ---
Author Organization [facility] Address [address] [facility] [address] [place] [address] Phone Care Team Providers Care Classics Teacher Name Role Phone Elena Chowdary MD Primary Care Provider [phone] Reason for Visit * Reason Comments Med Refill Encounter Details Date Type Department Care Team (Late st Contact Info) Description 2024 Refill [facility] [address] [facility] [address] [place] [phone] Jared Schwartz MD [address] [facility] [address] [place] [address] Social History Tobacco Use Types Packs/Day [...] as of this encounter Plan of Treatment Not on file documented as of this encounter Visit Diagnoses Not on filedocumented in this encounter Care Teams Classics Teacher Relationship Specialty Start Date End Date Elena Chowdary MD [address] [facility], [address] [place] [address] PCP - General 10/25/20 documented as of this encounter
--- OUTSIDE RECORDS SUMMARY | 2025-06-09 12:56 | XMS_ITS | Encounter Summary ---
Author Organization [facility] Address [address] [facility] [address] [place] [address] Phone Care Team Providers Care Needle Maker Name Role Phone Elena Chowdary MD Primary Care Provider [phone] Reason for Visit * Reason Comments Med Refill Encounter Details Date Type Department Care Team (Late st Contact Info) Description 10/28/2024 Refill [facility] [address] [facility] [address] [place] [phone] Jared Schwartz MD [address] [facility] [address] [place] [address] Social History Tobacco Use Types [...] on filedocumented in this encounter Care Teams Needle Maker Relationship Specialty Start Date End Date Elena Chowdary MD [address] [facility], [address] [place] [address] PCP - General 10/25/20 documented as of this encounter
--- OUTSIDE RECORDS SUMMARY | 2025-06-09 12:56 | XMS_ITS ---
Author Name [facility] Organization Unknown Encounters Encounter Type Encounter Reason Primary Diagnosis Location Date Ambulatory [facility] 08/12/2024 Care Team Organization Name Specialty Phone Email Start Date End Da te [facility] [address] [facility] [place]ILLALPANDO Primary Care 05/01/2024 01/28/2025
--- OUTSIDE RECORDS SUMMARY | 2025-06-09 12:56 | XMS_ITS | Patient Health Record ---
Author Organization [facility] [address] Address [address] [place] [address] Care Team Providers Care Medical Sales Specialist Name Role Phone MANSOOR CHOWDARY Primary Care Provider SHUKRI CHOWDARY Unavailable [phone] MARGO FRANK Unavailable [phone] Allergies Allergen (clinical drug ingredient) Drug/Non Drug Allergy documented on EMR Reaction Allergy Type Onset Date Status codeine codeine (uncoded) Unknown Allergy Ac tive Shellfish (FN) shellfish (uncoded) Unknown Allergy Active Results Component Value Reference Range Notes COMPREHENSIVE METABOLIC PANE L Reviewed date:03/26/2025 08:13:50 AM Interpretation: Performing Lab: Notes/Report: Sodium 142 133-145 mmol/L Potassium 4.0 3.5-5.5 mmol/L Chloride 108 96-110 mmol/L CO2 26 21-32 mmol/L Anion Gap 8 3-11 Glucose 92 70-100 mg/dL BUN 21 5-25 mg/dL Creatinine 0.97 0.50-1.10 mg/dL eGFR 56 >=60 mL/min/1.73m2 Calculati on based on the Chronic Kidney Disease Epidemiology Collaboration (CKD-EPI) equation refit without adjustment for race. BUN/Creatinine Ratio 21.6 Calcium 9.1 8.5-10.5 mg/dL AST (SGOT) 19 10-42 unit/L ALT (SGPT) 16 10-60 unit/L Alkaline Phosphatase 86 42-121 unit/L Total Protein 6.7 6.0-8.0 g/dL Albumin 3.8 3.2-5.0 g/dL Total Bilirubin 0.7 0.0-1.4 mg/dL THYROID STIMULATING HORMONE Reviewed date:03/24/2025 03:16:39 PM Interpretation: Performing Lab: Notes/Report: TSH 2.91 0.40-4.00 mcIU/mL VITAMIN D 25 HYDROXY Reviewed date:03/24/2025 03:16:45 PM Interpretation: Performing Lab: Notes/Report: Vit D, 25-Hydroxy 63.4 30.0-80.0 ng/mL LIPID PANEL WITH REFLEX TO D IRECT LDL Reviewed date:03/24/2025 03:16:50 PM Interpretation: Performing Lab: Notes/Report: Cholesterol 172 0-200 mg/dL Triglycerides 107 0-150 mg/dL HDL 62 >=40 mg/dL LDL Calculated 89 0-100 mg/dL VLDL Cholesterol Nolan 21.4 Non HDL Chol. (LDL+VLDL) 110 <145 mg/dL Chol/HDL Ratio 2.8 0.0-4.4 CBC WITH AUTO DIFFERENTIAL Reviewed date:03/26/2025 08:13:40 AM Interpretation: Performing Lab: Notes/Report: WBC 5.2 4.8-10.8 K/mcL RBC 4.70 3.80-4.80 M/mcL Hemoglobin 13.4 11.5-16.0 g/dL Hematocrit 42.6 35.0-47.0 % MCV 91.6 79.0-98.0 FL MCH 28.8 27.0-32.0 pcg MCHC 31.5 32.0-37.0 g/dL RDW 14.5 11.0-15.0 % Platelets 181 130-400 K/mcL MPV 12.3 7.0-11.0 FL NRBC 0.0 <1.0 % NRBC Absolute 0.00 <0.10 K/mcL Neutrophils Relative 57.2 Lymphocytes Relative 25.3 Monocytes Relative 8.7 Eosinophils Relative 7.0 Basophils Relative 1.4 Immature Granulocytes Relative 0.4 Neutrophils Absolute 2.96 1.50-7.00 K/mcL Lymphocytes Absolute 1.31 1.00-5.00 K/mcL Monocytes Absolute 0.45 0.20-1.00 K/mcL Eosinophils Absolute 0.36 0.00-0.50 K/mcL Basophils Absolute 0.07 0.00-0.20 K/mcL Immature Granulocytes Absolute 0.02 0.00-0.03 K/mcL Reason For Referral Reason evaluate & treat Diagnosis 1 Hearing loss, unspec ified hearing loss type, unspecified laterality (H91.90) Referral Organization [facility] [address] Referring Provider First Name [facility] Referring Provider Last Name KWASI Referring Provider Speciality Internal M edicine Referred Provider Specialty Audiologists Clinical Notes Dominic Byron 02/12 01:27:48 PM > gaxed pt info to [facility] p)julio [phone] f) [phone], Isidoro Brown 03/12/2025 02:29:53 PM > Spoke with Reyna. Scheduled on Oct 23, 2025 at 2pm Referral Priority Routine Medications Medication SIG (Take, Route, Frequency, Duration) Notes Start Date End Date Status amLODIPine Besylate 5 MG 1 tablet Orally Once a day; Duration: 90 days Active Omeprazole 20 MG 1 capsule Orally Onc e a day; Duration: 90 days 09/23/2018 Active Vitamin D3 50 MCG (1999 UT) 1 capsule Orally Once a day; Duration: 30 day(s) 03/17/2025 Active Clotrimazole-Betamethasone 1-0.05 % 1 application Externally tid; Duration: 14 days Active Aspir-81 Active Simvastatin 20 MG 1 tablet in the even ing Orally Once a day; Duration: 90 days Active Losartan Potassium 50 MG TAKE 1.5 TABLET S BY MOUTH EVERY DAY Oral; Duration: 90 Days Active Budesonide-Formoterol Fumarate 80-4.5 MCG/ACT as directed Inhalation every 12 hours; Duration: 30 days Active Multi For Her 50+ - as directed Orally Active Immunizations Vaccine Route Administration Date Status Comme nts influenza IM Intramuscular 07/20/2020 Administered Social History Tobacco Use: Social History Observation Description Date Details (start date - stop date) Never Smoker NA - NA Tobacco Use/Smoking Question Answer Notes Are you a nonsmoker Problems Problem Type SNOMED Code ICD Code Onset Dates Problem Status W/U Status Risk Notes Problem Vitamin D deficiency (99459757) Vitamin D deficiency, unspecified (E55.9) Active confirmed Problem Mixed hyperlipidemia (673804843) Mixed hyperlipidemia (E78.2) Active confirmed Problem Hyperlipidemia (30581751) Hyperlipidemia, unspecified (E78.5) Active confirmed Problem Otitis externa of left ear (1502160199392298) Otitis externa in other diseases classified elsewhere, left ear (H62.42) Active confirmed Problem Lipid screening (926095049) Encounter for screening for lipoid disorders (Z13.220) Active confirmed Problem Counseling (520492591) Other specified counseling (Z71.89) Active confirmed Problem Essential hypertension (57909090) Essential hypertension (I10) Active confirmed Problem Obstructive sleep apnea syndrome (15460550) Obstructive sleep apnea syndrome (G47.33) Active confirmed Problem Adult health examination (493062855) Adult general medical exam (Z00.00) Active confirmed Problem Hearing loss (99615937) Hearing loss, unspecified hearing loss type, unspecified laterality (H91.90) Active confirmed Problem Obese class I (finding) (126021187505698) Obesity (BMI 30.0-34.9) (E66.9) Active confirmed Problem Vitamin D deficiency (06329808) Vitamin D deficiency (E55.9) Active confirmed Problem Adult-onset obesity (257404052) Adult-onset obesity (E66.9) Active confirmed Problem Pulmonary arterial hypertension (62448478) Pulmonary arterial hypertension (I27.21) Active confirmed Problem Gastroesophageal reflux disease (806423794) GERD without esophagitis (K21.9) Active confirmed Problem Endocrine/metabolic screening (650768168) Encounter for screening for endocrine disorder (Z13.29) Active confirmed Problem Obstructive sleep apnea syndrome (16620149) SHANTEL on CPAP (G47.33) Active confirmed Problem Closed fracture of upper end of humerus (22051792) Displaced fracture of proximal end of humerus (S42.209A) Active confirmed Vital Signs Heart Rate 80 /min 03/30/2025 Oximetry 99 % 03/30/2025 Blood pressure diastolic 70 mm Hg 03/30/2025 Height 59 in 03/30/2025 Blood pressure systolic 132 mm Hg 03/30/2025 Weight 146.4 lbs 03/30/2025 BMI 29.57 kg/m2 03/30/2025 Encounters Encounter Location Date Provider Diagnosis [facility] [address] [place] [address] 08/27/2024 MANSOOR CHOWDARY Adult general medica l exam Z00.00 and Other specified counseling Z71.[address] [facility] [address] [place] [address] 02/25/2025 MANSOOR CHOWDARY Hyperlipidemia, unspecified E78.5 ; SHANTEL on CPAP G47.33 ; Cough R05.9 and Encounter for examination of blood pressure without abnormal findings Z01.[address] [facility] [address] [place] [address] 03/17/2025 MANSOOR CHOWDARY Hyperlipidemia, unspecified E78.5 ; Essential (primary) hypertension I10 ; Syncope and collapse R55 and Encounter for examination of blood pressure with abnormal findings Z01.[address] [facility] [address] [place] [address] 03/30/2025 MARGO FRANK Essential hypertensi on I10 ; Mixed hyperlipidemia E78.2 ; GERD without esophagitis K21.9 and Encounter for examination of blood pressure without abnormal findings Z01.30 [facility] [address] [place] [address] 08/29/2024 TALAL KWASI [facility] [address] [place] [address] 12/02/2024 PATRICIAHOOD KWASI [facility] [address] [place] [address] 12/03/2024 NIDHOOD KWASI [facility] [address] [place] [address] 12/04/2024 NIDHOOD KWASI [facility] [address] [place] [address] 2024 PATRICIAHOOD KWASI [facility] [address] [place] [address] 01/02/2025 SANTIAGOLADARIUS KWASI [facility] [address] [place] [address] 01/09/2025 TALAL CHOWDARY [facility] [address] [place] [address] 03/11/2025 NIDHOOD KWASI [facility] [address] [place] [address] 03/25/2025 NIDHOOD CHOWDARY [facility] [address] [place] [address] 04/09/2025 NIDHOOD CHOWDARY [facility] [address] [place] [address] 04/22/2025 NIDHOOD CHOWDARY [facility] [address] [place] [address] 04/28/2025 NIDHOOD CHOWDARY [facility] [address] [place] [address] 05/21/2025 MANSOOR CHOWDARY [facility] [address] [place] [address] 05/28/2025 MANSOOR CHOWDARY [facility] [address] [place] [address] 06/04/2025 MANSOOR DE LA TORREAN Assessments Encounter Date Diagnosis (ICD Code) Assessment Notes Treatment Notes Treatment Clinical Notes Section Notes 02/25/2025 SHANTEL on CPAP (ICD-10 - G47.33) Patient lives independently, more than 10 years ago, is in touch with her son Nico, has good neighbors feels comfortable with her living arrangement. Health care proxy is her nephew in [place]#Patient reports difficulty in hearing/would make an appointment with ENT for possible hearing aids. #Patient reports low energy fatigue over the past few weeks. Will get complete blood work including thyroid panel and hemoglobin levels. Also recommended vitamin D intake. #Obesity: Discussed lifestyle modifications #Renal cysts on the CAT scan lung in March 2019, renal ultrasound in July 2019 discussed the renal ultrasound in February 2020 - it reveals new multiple bilateral renal cysts and nonobstructing stone, sees Dr. Edwards/credit control administrator. #Obstructive sleep apnea : Keeps the mask on for 4 hours every night/unable due to elbow fracture since , pulm aware #Hypertension, chronic, stable, sees credit control administrator(history of JACK), blood pressure within normal limits, continue the same medications. #Hyperlipidemia: Fasting lipid panel in February 2019 at goal, on simvastatin 20 mg daily. #GERD on chronic omeprazole 20 mg daily. 03/17/2025 Hyperlipidemia, unspecified (ICD-10 - E78.5) Patient lives independently, more than 10 years ago, is in touch with her son Nico, has good neighbors feels comfortable with her living arrangement. Health care proxy is her nephew in [place]#Patient reports difficulty in hearing/would make an appointment with ENT for possible hearing aids. #Syncopal episode leading to an ER visit on March 09, 2025. The blood work and EKG was within normal limits. Patient reports fatigue after taking labetalol 200 mg her morning dose. 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 We discussed to adjust her blood pressure medications. We recommended to discontinue labetalol, amlodipine 5 mg twice daily and losartan 50 mg twice daily with daily blood pressure log at home and follow-up in 2 weeWe will also get an echocardiogram, patient sees Dr. Lemos for a chronic mumur #Obesity: Discussed lifestyle modifications #Renal cysts on the CAT scan lung in March 2019, renal ultrasound in July 2019 discussed the renal ultrasound in February 2020 - it reveals new multiple bilateral renal cysts and nonobstructing stone, sees Dr. Edwards/credit control administrator. #Obstructive sleep apnea: Has been off the CPAP mask/pulmonary aware. #Hypertension, chronic, stable, sees credit control administrator(history of JACK), Has been on 3 blood pressure medications labetalol 200 mg twice daily, amlodipine 5 mg once daily and losartan 50 mg 1-1/2 tablet daily. #Hyperlipidemia: Fasting lipid panel in February 2019 at goal, on simvastatin 20 mg daily. #GERD on chronic omeprazole 20 mg daily. 03/17/2025 Essential (primary) hypertension (ICD-10 - I10) Patient lives independently, more than 10 years ago, is in touch with her son Nico, has good neighbors feels comfortable with her living arrangement. Health care proxy is her nephew in [place]#Patient reports difficulty in hearing/would make an appointment with ENT for possible hearing aids. #Syncopal episode leading to an ER visit on March 09, 2025. The blood work and EKG was within normal limits. Patient reports fatigue after taking labetalol 200 mg her morning dose. 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 We discussed to adjust her blood pressure medications. We recommended to discontinue labetalol, amlodipine 5 mg twice daily and losartan 50 mg twice daily with daily blood pressure log at home and follow-up in 2 weeWe will also get an echocardiogram, patient sees Dr. Lemso for a chronic mumur #Obesity: Discussed lifestyle modifications #Renal cysts on the CAT scan lung in March 2019, renal ultrasound in July 2019 discussed the renal ultrasound in February 2020 - it reveals new multiple bilateral renal cysts and nonobstructing stone, sees Dr. Edwards/credit control administrator. #Obstructive sleep apnea: Has been off the CPAP mask/pulmonary aware. #Hypertension, chronic, stable, sees credit control administrator(history of JACK), Has been on 3 blood pressure medications labetalol 200 mg twice daily, amlodipine 5 mg once daily and losartan 50 mg 1-1/2 tablet daily. #Hyperlipidemia: Fasting lipid panel in February 2019 at goal, on simvastatin 20 mg daily. #GERD on chronic omeprazole 20 mg daily. 08/27/2024 Adult general medical exam (ICD-10 - [...] issues and [place] order of life-sustaining treatment. 02/25/2025 Hyperlipidemia, unspecified (ICD-10 - E78.5) Patient lives independently, more than 10 years ago, is in touch with her son Nico, has good neighbors feels comfortable with her living arrangement. Health care proxy is her nephew in [place]#Patient reports difficulty in hearing/would make an appointment with ENT for possible hearing aids. #Patient reports low energy fatigue over the past few weeks. Will get complete blood work including thyroid panel and hemoglobin levels. Also recommended vitamin D intake. #Obesity: Discussed lifestyle modifications #Renal cysts on the CAT scan lung in March 2019, renal ultrasound in July 2019 discussed the renal ultrasound in February 2020 - it reveals new multiple bilateral renal cysts and nonobstructing stone, sees Dr. Edwards/credit control administrator. #Obstructive sleep apnea : Keeps the mask on for 4 hours every night/unable due to elbow fracture since , pulm aware #Hypertension, chronic, stable, sees credit control administrator(history of JACK), blood pressure within normal limits, continue the same medications. #Hyperlipidemia: Fasting lipid panel in February 2019 at goal, on simvastatin 20 mg daily. #GERD on chronic omeprazole 20 mg daily. 03/30/2025 Mixed hyperlipidemia (ICD-10 - E78.2) Margie is an 89-year-old female present today for 2-week follow-up. #Hypertension: Followed by cardiology, Dr. Lemos. Patient was seen in the ER after syncopal episode March 09, 2025. Blood work and EKG within normal limits. Patient seen 2 weeks ago in office with recommendation of adjusting hypertensive therapy with concern that labetalol was causing excessive fatigue. States she has begun taking labetalol 200 mg once daily instead of twice daily with improvement in fatigue. Blood pressure stable in office. States she does monitor her blood pressure at home however is unable to provide example blood pressures. States she has a close family friend who is a nurse practitioner who helps with blood pressure. Will continue current management of labetalol 200 mg once daily, losartan 50 mg one half tab p.o. once daily and amlodipine 5 mg once daily per cardiology. Has follow-up with cardiology in the near future. Will most likely repeat echocardiogram per patient. Patient denies chest pain, shortness of breath, dizziness or lightheadedness. Recommend continuing to monitor blood pressure twice daily at home and keep a blood pressure log to bring to her next follow-up appointment. #Hyperlipidemia managed on simvastatin 20 mg p.o. once daily. #GERD: Managed on omeprazole 20 mg p.o. once daily. All questions answered to patients satisfaction. Patient verbalized understanding of diagnosis and treatments explained. To call sooner prior to next visit it any questions/concerns arise. Case discussed with collaborating physician Dr. Chowdary who reviewed the assessment and plan. Chart, medications, labs, vital signs reviewed. Dictation was accomplished with the use of [employer]out[employer] voice recognition software, prone to medical misidentifications and grammatical errors. This is unintentional and the practitioner does try to identify and correct these, but some could still be present. Please do not hesitate to contact practitioner for clarification. 03/30/2025 Essential hypertension (ICD-10 - I10) Margie is an 89-year-old female present today for 2-week follow-up. #Hypertension: Followed by cardiology, Dr. Lemos. Patient was seen in the ER after syncopal episode March 09, 2025. Blood work and EKG within normal limits. Patient seen 2 weeks ago in office with recommendation of adjusting hypertensive therapy with concern that labetalol was causing excessive fatigue. States she has begun taking labetalol 200 mg once daily instead of twice daily with improvement in fatigue. Blood pressure stable in office. States she does monitor her blood pressure at home however is unable to provide example blood pressures. States she has a close family friend who is a nurse practitioner who helps with blood pressure. Will continue current management of labetalol 200 mg once daily, losartan 50 mg one half tab p.o. once daily and amlodipine 5 mg once daily per cardiology. Has follow-up with cardiology in the near future. Will most likely repeat echocardiogram per patient. Patient denies chest pain, shortness of breath, dizziness or lightheadedness. Recommend continuing to monitor blood pressure twice daily at home and keep a blood pressure log to bring to her next follow-up appointment. #Hyperlipidemia managed on simvastatin 20 mg p.o. once daily. #GERD: Managed on omeprazole 20 mg p.o. once daily. All questions answered to patients satisfaction. Patient verbalized understanding of diagnosis and treatments explained. To call sooner prior to next visit it any questions/concerns arise. Case discussed with collaborating physician Dr. Chowdary who reviewed the assessment and plan. Chart, medications, labs, vital signs reviewed. Dictation was accomplished with the use of [employer]out[employer] voice recognition software, prone to medical misidentifications and grammatical errors. This is unintentional and the practitioner does try to identify and correct these, but some could still be present. Please do not hesitate to contact practitioner for clarification. 03/30/2025 GERD without esophagitis (ICD-10 - K21.9) Margie is an 89-year-old female present today for 2-week follow-up. #Hypertension: Followed by cardiology, Dr. Lemos. Patient was seen in the ER after syncopal episode March 09, 2025. Blood work and EKG within normal limits. Patient seen 2 weeks ago in office with recommendation of adjusting hypertensive therapy with concern that labetalol was causing excessive fatigue. States she has begun taking labetalol 200 mg once daily instead of twice daily with improvement in fatigue. Blood pressure stable in office. States she does monitor her blood pressure at home however is unable to provide example blood pressures. States she has a close family friend who is a nurse practitioner who helps with blood pressure. Will continue current management of labetalol 200 mg once daily, losartan 50 mg one half tab p.o. once daily and amlodipine 5 mg once daily per cardiology. Has follow-up with cardiology in the near future. Will most likely repeat echocardiogram per patient. Patient denies chest pain, shortness of breath, dizziness or lightheadedness. Recommend continuing to monitor blood pressure twice daily at home and keep a blood pressure log to bring to her next follow-up appointment. #Hyperlipidemia managed on simvastatin 20 mg p.o. once daily. #GERD: Managed on omeprazole 20 mg p.o. once daily. All questions answered to patients satisfaction. Patient verbalized understanding of diagnosis and treatments explained. To call sooner prior to next visit it any questions/concerns arise. Case discussed with collaborating physician Dr. Chowdary who reviewed the assessment and plan. Chart, medications, labs, vital signs reviewed. Dictation was accomplished with the use of [employer] voice recognition software, prone to medical misidentifications and grammatical errors. This is unintentional and the practitioner does try to identify and correct these, but some could still be present. Please do not hesitate to contact practitioner for clarification. 02/25/2025 Cough (ICD-10 - R05.9) Patient lives independently, more than 10 years ago, is in touch with her son Nico, has good neighbors feels comfortable with her living arrangement. Health care proxy is her nephew in [place]#Patient reports difficulty in hearing/would make an appointment with ENT for possible hearing aids. #Patient reports low energy fatigue over the past few weeks. Will get complete blood work including thyroid panel and hemoglobin levels. Also recommended vitamin D intake. #Obesity: Discussed lifestyle modifications #Renal cysts on the CAT scan lung in March 2019, renal ultrasound in July 2019 discussed the renal ultrasound in February 2020 - it reveals new multiple bilateral renal cysts and nonobstructing stone, sees Dr. Edwards/credit control administrator. #Obstructive sleep apnea : Keeps the mask on for 4 hours every night/unable due to elbow fracture since , pulm aware #Hypertension, chronic, stable, sees credit control administrator(history of JACK), blood pressure within normal limits, continue the same medications. #Hyperlipidemia: Fasting lipid panel in February 2019 at goal, on simvastatin 20 mg daily. #GERD on chronic omeprazole 20 mg daily. 03/17/2025 Syncope and collapse (ICD-10 - R55) Patient lives independently, more than 10 years ago, is in touch with her son Nico, has good neighbors feels comfortable with her living arrangement. Health care proxy is her nephew in [place]#Patient reports difficulty in hearing/would make an appointment with ENT for possible hearing aids. #Syncopal episode leading to an ER visit on March 09, 2025. The blood work and EKG was within normal limits. Patient reports fatigue after taking labetalol 200 mg her morning dose. 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 We discussed to adjust her blood pressure medications. We recommended to discontinue labetalol, amlodipine 5 mg twice daily and losartan 50 mg twice daily with daily blood pressure log at home and follow-up in 2 weeWe will also get an echocardiogram, patient sees Dr. Lemos for a chronic mumur #Obesity: Discussed lifestyle modifications #Renal cysts on the CAT scan lung in March 2019, renal ultrasound in July 2019 discussed the renal ultrasound in February 2020 - it reveals new multiple bilateral renal cysts and nonobstructing stone, sees Dr. Edwards/credit control administrator. #Obstructive sleep apnea: Has been off the CPAP mask/pulmonary aware. #Hypertension, chronic, stable, sees credit control administrator(history of JACK), Has been on 3 blood pressure medications labetalol 200 mg twice daily, amlodipine 5 mg once daily and losartan 50 mg 1-1/2 tablet daily. #Hyperlipidemia: Fasting lipid panel in February 2019 at goal, on simvastatin 20 mg daily. #GERD on chronic omeprazole 20 mg daily. 08/27/2024 Other specified counseling (ICD-10 - Z71.89) [...] issues and [place] order of life-sustaining treatment. 03/17/2025 Encounter for examination of blood pressure with abnormal findings (ICD-10 - Z01.31) Patient lives independently, more than 10 years ago, is in touch with her son Nico, has good neighbors feels comfortable with her living arrangement. Health care proxy is her nephew in [place]#Patient reports difficulty in hearing/would make an appointment with ENT for possible hearing aids. #Syncopal episode leading to an ER visit on March 09, 2025. The blood work and EKG was within normal limits. Patient reports fatigue after taking labetalol 200 mg her morning dose. 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 We discussed to adjust her blood pressure medications. We recommended to discontinue labetalol, amlodipine 5 mg twice daily and losartan 50 mg twice daily with daily blood pressure log at home and follow-up in 2 weMallory will also get an echocardiogram, patient sees Dr. Lemos for a chronic mumur #Obesity: Discussed lifestyle modifications #Renal cysts on the CAT scan lung in March 2019, renal ultrasound in July 2019 discussed the renal ultrasound in February 2020 - it reveals new multiple bilateral renal cysts and nonobstructing stone, sees Dr. Edwards/credit control administrator. #Obstructive sleep apnea: Has been off the CPAP mask/pulmonary aware. #Hypertension, chronic, stable, sees credit control administrator(history of JACK), Has been on 3 blood pressure medications labetalol 200 mg twice daily, amlodipine 5 mg once daily and losartan 50 mg 1-1/2 tablet daily. #Hyperlipidemia: Fasting lipid panel in February 2019 at goal, on simvastatin 20 mg daily. #GERD on chronic omeprazole 20 mg daily. 03/30/2025 Encounter for examination of blood pressure without abnormal findings (ICD-10 - Z01.30) Margie is an 89-year-old female present today for 2-week follow-up. #Hypertension: Followed by cardiology, Dr. Lemos. Patient was seen in the ER after syncopal episode March 09, 2025. Blood work and EKG within normal limits. Patient seen 2 weeks ago in office with recommendation of adjusting hypertensive therapy with concern that labetalol was causing excessive fatigue. States she has begun taking labetalol 200 mg once daily instead of twice daily with improvement in fatigue. Blood pressure stable in office. States she does monitor her blood pressure at home however is unable to provide example blood pressures. States she has a close family friend who is a nurse practitioner who helps with blood pressure. Will continue current management of labetalol 200 mg once daily, losartan 50 mg one half tab p.o. once daily and amlodipine 5 mg once daily per cardiology. Has follow-up with cardiology in the near future. Will most likely repeat echocardiogram per patient. Patient denies chest pain, shortness of breath, dizziness or lightheadedness. Recommend continuing to monitor blood pressure twice daily at home and keep a blood pressure log to bring to her next follow-up appointment. #Hyperlipidemia managed on simvastatin 20 mg p.o. once daily. #GERD: Managed on omeprazole 20 mg p.o. once daily. All questions answered to patients satisfaction. Patient verbalized understanding of diagnosis and treatments explained. To call sooner prior to next visit it any questions/concerns arise. Case discussed with collaborating physician Dr. Chowdary who reviewed the assessment and plan. Chart, medications, labs, vital signs reviewed. Dictation was accomplished with the use of [employer] voice recognition software, prone to medical misidentifications and grammatical errors. This is unintentional and the practitioner does try to identify and correct these, but some could still be present. Please do not hesitate to contact practitioner for clarification. 02/25/2025 Encounter for examination of blood pressure without abnormal findings (ICD-10 - Z01.30) Patient lives independently, more than 10 years ago, is in touch with her son Nico, has good neighbors feels comfortable with her living arrangement. Health care proxy is her nephew in [place]#Patient reports difficulty in hearing/would make an appointment with ENT for possible hearing aids. #Patient reports low energy fatigue over the past few weeks. Will get complete blood work including thyroid panel and hemoglobin levels. Also recommended vitamin D intake. #Obesity: Discussed lifestyle modifications #Renal cysts on the CAT scan lung in March 2019, renal ultrasound in July 2019 discussed the renal ultrasound in February 2020 - it reveals new multiple bilateral renal cysts and nonobstructing stone, sees Dr. Edwards/credit control administrator. #Obstructive sleep apnea : Keeps the mask on for 4 hours every night/unable due to elbow fracture since , pulm aware #Hypertension, chronic, stable, sees credit control administrator(history of JACK), blood pressure within normal limits, continue the same medications. #Hyperlipidemia: Fasting lipid panel in February 2019 at goal, on simvastatin 20 mg daily. #GERD on chronic omeprazole 20 mg daily. Plan Of Treatment Pending Test Test Name Order Date Mammogram 07/19/2022 Vitamin D, 25-Hydroxy 11/19/2018 Lipid Panel 12/02/2020 Comp. Metabolic Panel (14) 12/02/2020 CBC 12/02/2020 EKG 03/14/2019 25OH VITAMIN D 07/14/2019 25OH VITAMIN D 12/02/2020 BASIC METABOLIC PANEL 07/20/2020 CBC (COMPLETE BLOOD COUNT) 07/14/2019 CBC (COMPLETE BLOOD COUNT) 11/19/2018 COMPREHENSIVE METABOLIC PANEL 11/19/2018 COMPREHENSIVE METABOLIC PANEL 07/14/2019 LIPID PANEL 07/14/2019 LIPID PANEL 11/19/2018 LIPID PANEL, STANDARD 03/17/2025 LIPID PANEL, STANDARD 02/27/2024 LIPID PANEL, STANDARD 08/27/2024 LIPID PANEL, STANDARD 02/25/2025 COMPREHENSIVE METABOLIC PANEL 02/25/2025 COMPREHENSIVE METABOLIC PANEL 08/27/2024 COMPREHENSIVE METABOLIC PANEL 02/27/2024 COMPREHENSIVE METABOLIC PANEL 03/17/2025 COMPREHENSIVE METABOLIC PANEL 03/24/2022 CBC (INCLUDES DIFF/PLT) 03/24/2022 CBC (INCLUDES DIFF/PLT) 03/17/2025 CBC (INCLUDES DIFF/PLT) 02/27/2024 CBC (INCLUDES DIFF/PLT) 08/22/2023 CBC (INCLUDES DIFF/PLT) 08/27/2024 CBC (INCLUDES DIFF/PLT) 02/25/2025 TSH 03/17/2025 VITAMIN D,25-OH,TOTAL,IA 02/27/2024 VITAMIN D,25-OH,TOTAL,IA 03/17/2025 VITAMIN D,25-OH,TOTAL,IA 02/25/2025 VITAMIN D,25-OH,TOTAL,IA 08/27/2024 US Renal 07/14/2019 US Renal 07/30/2019 TSH+T3+Free T4+T3 Free 02/25/2025 Next Appt Details Provider Name:MANSOOR CHOWDARY, 10:15:00 AM, [address], [place], [address], Insurance Providers Payer Name Payer Address Payer Phone Subscriber Number Group Number Insured Name Patient Relationship to Insured Coverage Start Date Coverage End Date [employer] Preferred [address] [place] [phone] [id number] Margie Rocha Self - patient is the insured 7 [employer] [place] [address] [place] [address] [phone] [id number] Lenny os, Frankmendez Self - patient is the insured Medical (General) History Medical History History ICD Code anemia esophageal reflux Gout hypertension vitamin D deficiency hyperlipidemia Surgical History Surgery Date(Month/Year) appendectomy back surgery colonoscopy 6 years ORIF of olecranon fracture 12/21/23 left closed management of 4-part proxima l humerus fracture 12/21/23 Hospitalization History Reason Date(Month/Year) [facility] syncope episode 03/09/2025
--- OUTSIDE RECORDS SUMMARY | 2025-06-09 12:56 | XMS_ITS | Clinical Summary ---
Author Organization [address] [place] [address] Address [address] [place] [address] Phone Care Team Providers Care [facility] Dentist Name Role Phone Elena Chowdary MD Primary Care Provider Allergies Active Allergy Reactions Criticality Noted Date Comments Codeine 08/30/2018 Shellfish Containing Products 2017 Medications cholecalcifero l (VITAMIN D-3) 50 mcg (2,000 unit) capsule Take by mouth. Activ e omeprazole (PRILOSEC) 20 mg tablet,delayed release (DR/EC) [...] 1 Tab by mouth 2 times daily. 8 Active allopurinoL (ZYLOPRIM) 100 mg tablet Take 1 tablet (100 mg total) by mouth 1 (one) time each day. Active ascorbic acid, vitamin C, 500 mg capsule as directed Orally Active clotrimazole-b etamethasone (LOTRISONE) 1-0.05 % cream Apply 1 Application topically every 8 hours. Active budesonide-for moteroL (SYMBICORT) 80-4.5 mcg/actuation inhaler Inhale 2 puffs by mouth 2 (two) times a day. Rinse mouth with water after use to reduce aftertaste and incidence of candidiasis. Do not swallow. 10.2 g 11 Active Additional Information Patient not taking.Reported on 06/01/2025 budesonide-for moteroL (SYMBICORT) 80-4.5 mcg/actuation inhaler Inhale 2 Puffs into the lungs 2 times daily. 05/20/20 25 Discontin ued(Reord er) Active Problems Problem Noted Date Diagnosed Date Nonrheumatic aortic valve stenosis 06/01/2025 Assessment & Plan (06/01/2025 1:14 PM EDT): Will update surveillance echocardiogram to further evaluate for progression of aortic valve stenosis which could be contributing to her symptoms of fatigue. Patient appears to be euvolemic upon exam today Syncope and collapse 06/01/2025 Assessment & Plan (06/01/2025 1:14 PM EDT): Will update echocardiogram to evaluate for any valvular abnormalities or reduction in LVEF or wall motion abnormalities. I have also placed a 24-hour monitor on the patient during her office visit today as she was noted to have frequent PACs on exam. Adult-onset obesity 04/22/2025 Class 1 obesity 04/22/2025 Displaced fracture of proximal end of humerus Hearing loss 04/22/2025 Otitis externa of left ear 04/22/2025 Vitamin D deficiency 04/22/2025 SHANTEL on CPAP 08/11/2024 Overview (08/11/2024): f/u Dr. Telles Essential hypertension 05/30/2023 Overview (08/11/2024): Last Assessment & Plan: Patient's blood pressure is well controlled on recheck. Her blood pressures been well controlled on chart review. She does admit that she has houseguest currently who is somewhat stressful for her. Continue her beta-duane, calcium channel duane and ARB. Assessment & Plan (06/01/2025 1:14 PM EDT): Blood pressure elevated during today's exam however likely in the setting of stress as the patient has been caring for her 87-year-old cousin for the past few weeks while her nephews are in [facility]. Was well-controlled during office visit just 1 month prior. She will continue amlodipine 5 mg and losartan 50 mg. Should her blood pressure remain elevated during subsequent office visits, can consider increasing her antihypertensive medication. Educated on the importance of diet lifestyle to help further assist in reducing blood pressure. The patient was encouraged to follow low-salt low-fat diet, make purposeful strides towards weight loss, and engage in routine aerobic exercise as tolerated. Assessment & Plan (08/21/2024 2:20 PM EST): [...] statin. continue the same. Assessment & Plan (06/01/2025 1:14 PM EDT): Continue statin therapy and be mindful of dietary fat intake. Assessment & Plan (08/21/2024 2:21 PM EST): [...] before her next visit. Assessment & Plan (06/01/2025 1:14 PM EDT): Orders: Transthoracic echocardiogram (TTE) complete with PRN contrast, bubble, strain, and 3D order panel; Future perflutren lipid microsphere (DEFINITY) 1.3 mL in sodium chloride 0.9% 8.7 mL injection Assessment & Plan (08/21/2024 2:21 PM EST): Recent echocardiogram updated in May 2024 as outlined above. This did reveal mild to moderate mitral stenosis and mild regurgitation as outlined above. At this time patient remains asymptomatic. Will consider updating surveillance echocardiogram in 1 year to further evaluate progression. Thoracic aortic ectasia ([facility] V24) 05/30/2023 Overview (08/11/2024): Last Assessment & Plan: Patient's aorta size is stable on her most recent CT chest in July 2022. Given her advanced age, she is unlikely to reach operative size and/or be an operative candidate. The patient understands and accepts this. We will continue periodic surveillance of her aorta on echocardiograms given her mitral stenosis. Pulmonary arterial hypertension ([facility] V24, [facility] /[facility] V28) 09/19/2021 Multiple renal cysts 04/13/2021 Stage 3 chronic kidney disease ([facility] V24, [facility] V28) 04/13/2021 Encounters Date Type Department Care Team Description 06/01/2025 2:30 PM EDT Ancillary Procedure [facility] [address] [place] [address] Syncope, unspecified syncope type 06/01/2025 12:40 PM EDT Office Visit [facility] [address] [place] [address] Anh Cevallos NP Syncope, unspecified syncope type (Primary Dx); Nonrheumatic mitral valve stenosis; Essential hypertension; Nonrheumatic aortic valve stenosis; Other hyperlipidemia; Syncope and collapse 05/12/2025 11:00 AM EDT Ancillary Procedure [facility] [address] [place] [phone] Syncope 04/22/2025 11:30 AM EDT Office Visit [facility] - [place] [address] [place] [phone] Zaira Telles MD Pulmonary emphysema, unspecified emphysema type ([facility] V24, [facility] V28) (Primary Dx); Obstructive sleep apnea; Pulmonary nodule 03/26/2025 Telephone [facility] [address] [place] [phone] Esau Lemos MD 03/09/2025 11:34 AM EDT - 03/09/2025 2:35 PM EDT Emergency [facility] Emergency [address] [place] [phone] Katey Mckeon DO Syncope, unspecified syncope type (Primary Dx) Discharge Disposition: Home or Self Care from Last 3 Months Medical History Medical History Date Comments SHANTEL on CPAP DX:SHANTEL on CPAP; COMMENT: f/u Dr. Telles Dizziness Hypertension Hyperlipidemia Stage 3 chronic kidney disea se ([facility] V24, [facility] V28) Pulmonary arterial hypertens ion ([facility] V24, CMS/HCC V28) Otitis externa of left ear Vitamin D deficiency Class 1 obesity Displaced fracture of proxim al end of humerus Family History Medical History Relation Name Comments cabg Brother heart ailment Father Relation Name Status Comments Brother Father Social History Tobacco Use Types Packs/Day Years Used Date Smoking Tobacco: Never Smokeless Tobacco: Never Tobacco Cessation:Counseling Given: Not Answered Alcohol Use Standard Drinks/Week Comments Not Currently 0 (1 standard drink = 0.6 oz pur e alcohol) Comments Unknown Sex and Gender Information Value Date Recorded Sex Assigned at Not on file Legal Sex Female 1:06 AM EST Gender Identity Not on file Sexual Orientation Not on file Obstetrics History Last Filed Vital Signs Vital Sign Reading Time Taken Comments Blood Pressure 160/64 06/01/2025 12:39 PM EDT Pulse 70 06/01/2025 12:39 PM EDT Temperature 36.3 C (97.3 F) 04/22/2025 11:27 AM EDT Respiratory Rate 20 04/22/2025 11:27 AM EDT Oxygen Saturation 97% 06/01/2025 12:39 PM EDT Inhaled Oxygen Concentration - - Weight 64.9 kg (143 lb) 06/01/2025 12:39 PM EDT Height 152.4 cm (5') 06/01/2025 12:39 PM EDT Body Mass Index 27.93 06/01/2025 12:39 PM EDT Plan of Treatment Upcoming Encounters Date Type Department Care Team (Late st Contact Info) Description 07/23/2025 11:00 AM EDT Office Visit [facility] - [place] [address] [place] [phone] Zaira Telles MD [address] [place] [address] 08/31/2025 12:30 PM EST Ancillary Procedure [facility] - [facility] [address] [place] [phone] Health Maintenance Due Date Last Done Comments DTaP,Tdap,and Td Vaccines (1 - Tdap) 1954 RSV Immunization Adult Patients (1 - 1-dose 75+ series) 2010 Zoster Vaccines (2 of 3) 09/15/2013 07/21/2013 Falls Risk Assessment 09/17/2022 Medicare Annual Wellness Visit 09/17/2022 Osteoporosis Screening (Bone Density Screening) 09/17/2022 Social Influencers of Health Screening 09/17/2022 Depression Screening 10/15/2024 COVID-19 Vaccine ( season) 2025 08/12/2024, 08/31/2023, 09/20/2022, Additional history exists Influenza Vaccine (#1) 2025 , 07/17/2023, 07/26/2022, Additional history exists Hypertension/CHF/CAD Annual BMP Blood Test 03/23/2026 03/23/2025, 03/09/2025 Cholesterol Screening (Lipid Panel) 03/23/2030 03/23/2025, 12/14/2021 Pneumococcal Vaccine: 50+ Years Completed 01/13/2025, 12/14/2011 HIB Vaccines Aged Out No longer eligi [...] age to complete this topic Meningococcal B Vaccine Aged Out No l onger eligible based on patient's age to complete this topic RSV Immunization Patients Under 20 months Aged Out No longer eligible based on patient's age to complete this topic Varicella Vaccines Aged Out No longer eligible based on patient's age to complete this topic Procedures Procedure Name Priority Date/Time Associated Diagnosis Comments ECG 12-LEAD Routine 06/01/2025 1:14 PM EDT Syncope, unspecified syncope type CARDIAC HOLTER MONITOR (REPORT GENERATED IN HOUSE) Routine 06/01/2025 1:11 PM EDT Syncope, unspecified syncope type TRANSTHORACIC ECHOCARDIOGRAM (TTE) COMPLETE Routine 05/12/2025 11:15 AM EDT Syncope CBC WITH AUTO DIFFERENTIAL Routine 03/23/2025 10:14 AM EDT Routine general medical examination at a health care facility Screening for lipoid disorders Avitaminosis D Screening for thyroid disorder Abnormal finding of blood chemistry, unspecified THYROID STIMULATING HORMONE Routine 03/23/2025 10:14 AM EDT Routine general medical examination at a health care facility Screening for lipoid disorders Avitaminosis D Screening for thyroid disorder Abnormal finding of blood chemistry, unspecified Other fatigue VITAMIN D 25 HYDROXY Routine 03/23/2025 10:14 AM EDT Routine general medical examination at a health care facility Screening for lipoid disorders Avitaminosis D Screening for thyroid disorder Abnormal finding of blood chemistry, unspecified LIPID PANEL WITH REFLEX TO DIRECT LDL Routine 03/23/2025 10:14 AM EDT Routine general medical examination at a health care facility Screening for lipoid disorders Avitaminosis D Screening for thyroid disorder Abnormal finding of blood chemistry, unspecified COMPREHENSIVE METABOLIC PANEL Routine 03/23/2025 10:14 AM EDT Routine general medical examination at a health care facility Screening for lipoid disorders Avitaminosis D Screening for thyroid disorder Abnormal finding of blood chemistry, unspecified CBC AND DIFFERENTIAL Routine 03/23/2025 10:14 AM EDT Routine general medical examination at a health care facility Screening for lipoid disorders Avitaminosis D Screening for thyroid disorder Abnormal finding of blood chemistry, unspecified ECG ANNOTATED 03/10/2025 XR CHEST 2 VIEWS STAT 03/09/2025 1:33 PM EDT CBC WITH AUTO DIFFERENTIAL STAT 03/09/2025 12:36 PM EDT TROPONIN I HIGH SENSITIVITY STAT 03/09/2025 12:36 PM EDT MAGNESIUM STAT 03/09/2025 12:36 PM EDT BASIC METABOLIC PANEL STAT 03/09/2025 12:36 PM EDT CBC AND DIFFERENTIAL STAT 03/09/2025 12:36 PM EDT ECG 12-LEAD STAT 03/09/2025 12:25 PM EDT from Last 3 Months Results * ECG 12 lead (06/01/2025 1:14 PM EDT) Only the most recent of2 resultswithin the time period is included. 06/01/2025 12:5 7 PM EDT us Anh Cevallos NP ECG ORDERABLES Final Result GEMUSE * CARDIAC HOLTER MONITOR (REPORT GENERATED IN HOUSE) (06/01/2025 1:11 PM EDT) Anatomical Region Laterality Modality Cardiac Diagnost ic Narrative 06/08/2025 9:44 AM EDT [facility]PART[facility] [address] [id number], [place] [address] TEL: FAX: Type of Test: 24 Hour Holter Monitor Date of Test: 06/01/2025 Ordering Provider: Anh Cevallos NP Reason for Test: Syncope, unspecified syncope type Findings: 1: Normal Sinus Rhythm with First Degree AV Block and Sinus Arrhythmia. 2: Frequent PACs and atrial trigeminy. Rare atrial pairs and atrial runs lasting up to 17 beats with rates up to 133 bpm. 3: Rare PVCs and one couplet. 4: No significant pauses noted, longest R-R was 1.4 seconds at 5:02 AM. 5: Diary not returned. Impression: Frequent PACs with 18% burden. No symptoms recorded. us Anh Cevallos NP CV CARDIAC SERVICES [place] OCEDURES Final Result * (ABNORMAL) TRANSTHORACIC ECHOCARDIOGRAM (TTE) COMPLETE (05/12/2025 11:15 AM EDT) Left Atrium Minor [place] 6.9 cm CV PACS Left Atrium Major [place] 6.6 cm CV PACS LA Area Sys (A2C) 35 cm2 CV PACS LA Area Sys (A4C) 24 cm2 CV PACS LA Volume (BP) 104 mL CV PACS RA Area 14.6 cm2 CV PACS RA 2D Volume 31 mL CV PACS AV Regurgitation PHT 365 ms CV PACS AR Max Velocity 4.4 m/s CV PACS AV Peak Gradient 76 mmHg CV PACS AV Peak Aniket 2.2 m/s CV PACS AV Peak Gradient 20 mmHg CV PACS AV Mean Gradient 11 mmHg CV PACS Ao VTI 50.2 cm CV PACS AV Area Continuity Equation 1.4 cm2 CV PACS AV Area Peak Velocity 1.5 cm2 CV PACS Aortic Sinus Valsalva 3.8 cm CV PACS Ascending Aorta 3.6 cm CV PACS IVC Proximal 0.9 cm CV PACS IVC Proximal 0.3 cm CV PACS IVSD 1.0(A) 0.6 - 0.9 cm CV PACS LVIDD 5.8(A) 3.8 - 5.2 cm CV PACS LVIDS 2.5 2.2 - 3.5 cm CV PACS LVOT Diameter 1.9 cm CV PACS LVOT Mean Aniket 0.8 m/s CV PACS LVOT Mean Grad 3 mmHg CV PACS LVOT Peak VTI 25.5 cm CV PACS LVOT Peak Aniket 1.2 m/s CV PACS LVOT Peak Gradient 6 mmHg CV PACS LVPWD 0.9 0.6 - 0.9 cm CV PACS LVOT Area 2.8 cm2 CV PACS LVOT Stroke Volume 72 mL CV PACS E Wave Deceleration Time 261(A) 119 - 242 ms CV PACS MV Peak A Aniket 1.71 m/s CV PACS MV Peak E Aniket 1.09 m/s CV PACS MV Mean Gradient 7 mmHg CV PACS MV VTI 61.4 cm CV PACS Mitral Valve Max Velocity 1.9 m/s CV PACS MV Peak Gradient 14 mmHg CV PACS MV Area Continuity Equation 1.2 cm2 CV PACS PV Acceleration Time 151 ms CV PACS PV Acceleration Time 151 ms CV PACS RV Diastolic Basal Dimension 2.7 2.5 - 4.1 cm CV PACS RV S' 11 cm/s CV PACS TAPSE 21 mm CV PACS TR Peak Velocity 3.01 m/s CV PACS TR Peak Gradient 36 mmHg CV PACS Relative Wall Thickness ratio 0.31 CV PACS LVOT:AV VTI Index 0.51 CV PACS FS 57 % CV PACS LV Mass 2D 218 g CV PACS MV VTI:LVOT VTI ratio 2.4 CV PACS LVOT flow 227 mL/s CV PACS AV Velocity Ratio 0.55 CV PACS E/A Ratio 0.6 CV PACS BSA 1.67 m2 CV PACS LA Volume Index (BP) 64 mL/m2 CV PACS LVIDD Index 3.56 cm/m2 CV PACS LVIDS Index 1.53 cm/m2 CV PACS LV Mass Index 2D 134(A) 44 - 88 g/m2 CV PACS LVOT Stroke Index 44 mL/m2 CV PACS RA 2D Volume Index 19 15 - 27 mL/m2 CV PACS JOSS Index (VTI) 0.88 cm2/m2 CV PACS JOSS Index (Pk Aniket) 0.92 cm2/m2 CV PACS Ascending Aorta Index 2.21 cm/m2 CV PACS Right Ventricular Peak Systolic Pressure 39 mmHg CV PACS Est. RA Pressure 3 mmHg CV PACS Anatomical Region Laterality Modality Ultrasound Narrative 05/12/2025 3:43 PM EDT Left ventricle cavity size is normal. Left ventricular systolic function is in the normal range with an ejection fraction of 60-65%. No regional LV wall motion abnormalities noted. Right ventricle cavity is normal. Right ventricular systolic function is normal. The left atrium is severely dilated. The leaflets are moderately thickened. There is moderate annular calcification. There is trace regurgitation. There is mild to moderate stenosis. Mean gradient ~6 mmHg at 60 bpm. Compared to the prior echo from 2023, mitral valve disease appears similar. Left Ventricle Left ventricle cavity size is normal. Wall thickness was not well visualized. Systolic function is normal with an ejection fraction of 60-65%. There are no regional LV wall motion abnormalities. Indeterminate diastolic function due to MAC Right Ventricle Right ventricle cavity appears normal. Systolic function is normal. Left Atrium Left atrium cavity is severely dilated. Right Atrium Right atrium cavity is normal. IVC/SVC Inferior vena cava structure is normal. RA pressures is estimated to be 3 mmHg (IVC diameter <21 mm and decreases >50% during inspiration). Mitral Valve The leaflets are moderately thickened. There is moderate annular calcification. There is trace regurgitation. There is mild to moderate stenosis. Mean gradient ~6 mmHg at 60 bpm. Tricuspid Valve Tricuspid valve structure is normal. There is mild regurgitation with a central jet. There is no significant tricuspid valve stenosis. Aortic Valve The aortic valve is trileaflet. The leaflets are moderately thickened and exhibit moderately reduced excursion. The leaflets are calcified. There is mild regurgitation. There is no significant stenosis. Pulmonic Valve The pulmonic valve was not well visualized. No significant pulmonic valve regurgitation. No significant pulmonary valve stenosis noted. Ascending Aorta The Sinus of Valsalva is (3.8 cm). The ascending aorta is 3.6 cm). Pericardium Pericardium appears normal. There is no pericardial effusion. Study Details Overall the study quality was adequate. Elena Chowdary MD CV ECHO PROCEDURES Final Result * Lipid panel with reflex to direct LDL (03/23/2025 10:14 AM EDT) Cholesterol 172 0 - 200 mg/dL LAB CHEMISTRY METHOD 03/23/2025 1:56 PM EDT [facility] Triglycerides 107 0 - 150 mg/dL LAB CHEMISTRY METHOD 03/23/2025 1:56 PM EDT [facility] HDL 62 >=40 mg/dL LAB CHEMISTRY METHOD 03/23/2025 1:56 PM EDT [facility] LDL Calculated 89 0 - 100 mg/dL LAB CHEMISTRY METHOD 03/23/2025 1:56 PM EDT [facility] VLDL Cholesterol Nolan 21.4 mg/dL LAB CHEMISTRY METHOD 03/23/2025 1:56 PM EDT [facility] Non HDL Chol. (LDL+VLDL) 110 <145 mg/dL LAB CHEMISTRY METHOD 03/23/2025 1:56 PM EDT [facility] Chol/HDL Ratio 2.8 0.0 - 4.4 LAB CHEMISTRY METHOD 03/23/2025 1:56 PM EDT [facility] Blood Venous blood specimen / Unknown Venipuncture / Unknown 03/23/2025 10:14 AM EDT 03/23/2025 12:17 PM EDT Elena Chowdary MD LAB BLOOD ORDERABLES Final Resul t [facility] [address] [place] [address], [place] [phone] * (ABNORMAL) CBC auto differential (03/23/2025 10:14 AM EDT) Only the most recent of2 resultswithin the time period is included. WBC 5.2 4.8 - 10.8 K/mcL LAB HEMETOLOGY METHOD 03/23/2025 2:41 PM EDT [facility] RBC 4.70 3.80 - 4.80 M/mcL LAB HEMETOLOGY METHOD 03/23/2025 2:41 PM [facility] Hemoglobin 13.4 11.5 - 16.0 g/dL LAB HEMETOLOGY METHOD 03/23/2025 2:41 PM [facility] Hematocrit 42.6 35.0 - 47.0 % LAB HEMETOLOGY METHOD 03/23/2025 2:41 PM [facility] MCV 91.6 79.0 - 98.0 FL LAB HEMETOLOGY METHOD 03/23/2025 2:41 PM [facility] MCH 28.8 27.0 - 32.0 pcg LAB HEMETOLOGY METHOD 03/23/2025 2:41 PM [facility] MCHC 31.5(L) 32.0 - 37.0 g/dL LAB HEMETOLOGY METHOD 03/23/2025 2:41 PM [facility] RDW 14.5 11.0 - 15.0 % LAB HEMETOLOGY METHOD 03/23/2025 2:41 PM [facility] Platelets 181 130 - 400 K/mcL LAB HEMETOLOGY METHOD 03/23/2025 2:41 PM [facility] MPV 12.3(H) 7.0 - 11.0 FL LAB HEMETOLOGY METHOD 03/23/2025 2:41 PM [facility] NRBC 0.0 <1.0 % LAB HEMETOLOGY METHOD 03/23/2025 2:41 PM [facility] NRBC Absolute 0.00 <0.10 K/mcL LAB HEMETOLOGY METHOD 03/23/2025 2:41 PM [facility] Neutrophils Relative 57.2 % LAB HEMETOLOGY METHOD 03/23/2025 2:41 PM [facility] Lymphocytes Relative 25.3 % LAB HEMETOLOGY METHOD 03/23/2025 2:41 PM [facility] Monocytes Relative 8.7 % LAB HEMETOLOGY METHOD 03/23/2025 2:41 PM [facility] Eosinophils Relative 7.0 % LAB HEMETOLOGY METHOD 03/23/2025 2:41 PM [facility] Basophils Relative 1.4 % LAB HEMETOLOGY METHOD 03/23/2025 2:41 PM [facility] Immature Granulocytes Relative 0.4 % LAB HEMETOLOGY METHOD 03/23/2025 2:41 PM [facility] Neutrophils Absolute 2.96 1.50 - 7.00 K/mcL LAB HEMETOLOGY METHOD 03/23/2025 2:41 PM [facility] Lymphocytes Absolute 1.31 1.00 - 5.00 K/mcL LAB HEMETOLOGY METHOD 03/23/2025 2:41 PM [facility] Monocytes Absolute 0.45 0.20 - 1.00 K/mcL LAB HEMETOLOGY METHOD 03/23/2025 2:41 PM [facility] Eosinophils Absolute 0.36 0.00 - 0.50 K/mcL LAB HEMETOLOGY METHOD 03/23/2025 2:41 PM [facility] Basophils Absolute 0.07 0.00 - 0.20 K/mcL LAB HEMETOLOGY METHOD 03/23/2025 2:41 PM [facility] Immature Granulocytes Absolute 0.02 0.00 - 0.03 K/mcL LAB HEMETOLOGY METHOD 03/23/2025 2:41 PM [facility] Blood Venous blood specimen / Unknown Venipuncture / Unknown 03/23/2025 10:14 AM EDT 03/23/2025 12:20 PM EDT Elena Chowdary MD LAB BLOOD ORDERABLES Final Resul t Performing Organization Address City/[facility]/ZIP Co de Phone Number [facility] [address] [place] [address], * Vitamin D 25 hydroxy (03/23/2025 10:14 AM EDT) Vit D, 25-Hydroxy 63.4 30.0 - 80.0 ng/mL LAB CHEMISTRY METHOD 03/23/2025 2:40 PM EDT [facility] Blood Venous blood specimen / Unknown Venipuncture / Unknown 03/23/2025 10:14 AM EDT 03/23/2025 12:17 PM EDT Elena Chowdary MD LAB BLOOD ORDERABLES Final Resul t Performing Organization Address [facility] Co de Phone Number [facility] [address] [place] [address], * Thyroid stimulating hormone (03/23/2025 10:14 AM EDT) Pathologist [facility] TSH 2.91 0.40 - 4.00 mcIU/mL LAB CHEMISTRY METHOD 03/23/2025 5:27 PM EDT [facility] Blood Venous blood specimen / Unknown Venipuncture / Unknown 03/23/2025 10:14 AM EDT 03/23/2025 12:17 PM EDT Elena Chowdary MD LAB BLOOD ORDERABLES Final Resul t Performing Organization Address City/[facility]/ZIP Co de Phone Number [facility] [address] [place] [address], [place] [phone] * (ABNORMAL) Comprehensive metabolic panel (03/23/2025 10:14 AM EDT) Pathologist [facility] Sodium 142 133 - 145 mmol/L LAB CHEMISTRY METHOD 03/23/2025 1:56 PM EDT [facility] Potassium 4.0 3.5 - 5.5 mmol/L LAB CHEMISTRY METHOD 03/23/2025 1:56 PM [facility] Chloride 108 96 - 110 mmol/L LAB CHEMISTRY METHOD 03/23/2025 1:56 PM [facility] CO2 26 21 - 32 mmol/L LAB CHEMISTRY METHOD 03/23/2025 1:56 PM [facility] Anion Gap 8 3 - 11 LAB CHEMISTRY METHOD 03/23/2025 1:56 PM [facility] Glucose 92 70 - 100 mg/dL LAB CHEMISTRY METHOD 03/23/2025 1:56 PM [facility] BUN 21 5 - 25 mg/dL LAB CHEMISTRY METHOD 03/23/2025 1:56 PM [facility] Creatinine 0.97 0.50 - 1.10 mg/dL LAB CHEMISTRY METHOD 03/23/2025 1:56 PM [facility] eGFR 56(L) >=60 mL/min/1. 73m2 LAB CHEMISTRY METHOD 03/23/2025 1:56 PM [facility] Comment:Calculation based on the Chronic Kidney Disease Epidemiology Collaboration (CKD-EPI) equation refit without adjustment for race. BUN/Creatinine Ratio 21.6 LAB CHEMISTRY METHOD 03/23/2025 1:56 PM [facility] Calcium 9.1 8.5 - 10.5 mg/dL LAB CHEMISTRY METHOD 03/23/2025 1:56 PM [facility] AST (SGOT) 19 10 - 42 unit/L LAB CHEMISTRY METHOD 03/23/2025 1:56 PM [facility] ALT (SGPT) 16 10 - 60 unit/L LAB CHEMISTRY METHOD 03/23/2025 1:56 PM [facility] Alkaline Phosphatase 86 42 - 121 unit/L LAB CHEMISTRY METHOD 03/23/2025 1:56 PM [facility] Total Protein 6.7 6.0 - 8.0 g/dL LAB CHEMISTRY METHOD 03/23/2025 1:56 PM EDT [facility] Albumin 3.8 3.2 - 5.0 g/dL LAB CHEMISTRY METHOD 03/23/2025 1:56 PM EDT [facility] Total Bilirubin 0.7 0.0 - 1.4 mg/dL LAB CHEMISTRY METHOD 03/23/2025 1:56 PM EDT [facility] Blood Venous blood specimen / Unknown Venipuncture / Unknown 03/23/2025 10:14 AM EDT 03/23/2025 12:17 PM EDT Elena Chowdary MD LAB BLOOD ORDERABLES Final Resul t [facility] [address] [place] [address], * ECG-Annotated (03/10/2025) Provider Onbase ECG ORDERABLES Final Result * XR Chest 2 Views (03/09/2025 1:33 PM EDT) Anatomical Region Laterality Modality Body Radiographic Anai ging 03/09/2025 1:35 PM EDT Impressions 03/09/2025 1:38 PM EDT No acute findings. -------- FINAL REPORT -------- Dictated By: Roland Esquivel Dictated Date: 03/09/2025 13:35 ET Assigned Physician: Roland Esquivel Reviewed and Electronically Signed By: Roland Esquivel Signed Date: 03/09/2025 13:38 ET Workstation ID: [id number] Transcribed By: Self Edit Transcribed Date: 03/09/2025 13:35 ET Narrative 03/09/2025 1:38 PM EDT PROCEDURE: PA and lateral radiographs of the chest. HISTORY: chest pain. COMPARISON: 02/22/2018. FINDINGS: Stable mild cardiomegaly. Mildly hypoventilatory inspiratory effort. Patchy bibasilar opacities suggesting scarring and/or atelectasis. Tortuous aorta with atherosclerotic calcifications. No pneumothorax, pleural effusion, or pulmonary edema. Degenerative changes of the spine. Right glenohumeral arthroplasty. Severe degenerative changes of the left shoulder. Procedure Note Roland Esquivel MD - 03/09/2025 PROCEDURE: PA and lateral radiographs of the chest. HISTORY: chest pain. COMPARISON: 02/22/2018. FINDINGS: Stable mild cardiomegaly. Mildly hypoventilatory inspiratory effort.Patchy bibasilar opacities suggesting scarring and/or atelectasis.Tortuous aorta with atherosclerotic calcifications. No pneumothorax,pleural effusion, or pulmonary edema. Degenerative changes of the spine.Right glenohumeral arthroplasty. Severe degenerative changes of the leftshoulder. IMPRESSION: No acute findings. -------- FINAL REPORT -------- Dictated By: Roland Esquivel Dictated Date: 03/09/2025 13:35 ET Assigned Physician: Roland Esquivel Reviewed and Electronically Signed By: Roland Esquivel Signed Date: 03/09/2025 13:38 ET Workstation ID: [id number] Transcribed By: Self Edit Transcribed Date: 03/09/2025 13:35 ET us Katey Mckeon DO IMG XR PROCEDURES Final R esult * Troponin I high sensitivity (03/09/2025 12:36 PM EDT) [facility] High Sensitivity Troponin I 10 <=54 ng/L LAB CHEMISTRY METHOD 03/09/2025 1:52 PM EDT [facility] Blood Venous blood specimen / Unknown Venipuncture / Unknown 03/09/2025 12:36 PM EDT 03/09/2025 1:13 PM EDT Narrative [facility] - 03/09/2025 1:52 PM EDT High levels of biotin in samples may falsely decrease hsTroponin values. Use caution when interpreting hsTroponin results in patients taking biotin who exhibit renal impairment (eGFR <60) or in patients taking more than 20 mg/day of biotin. Katey Mckeon LAB BLOOD ORDERABLES Olivia l Result Performing Organization Address [facility]/ZIP Co de Phone Number [facility] [address] [place] [address], [place] [phone] * (ABNORMAL) Magnesium (03/09/2025 12:36 PM EDT) [facility] Magnesium 1.8(L) 1.9 - 2.6 mg/dL LAB CHEMISTRY METHOD 03/09/2025 1:57 PM EDT [facility] Comment:Hemolysis present Blood Venous blood specimen / Unknown Venipuncture / Unknown 03/09/2025 12:36 PM EDT 03/09/2025 1:13 PM EDT [facility] Jose Mckeon LAB BLOOD ORDERABLES Olivia l Result Performing Organization Address [facility] Co de Phone Number [facility] [address] [place] [address], [place] [phone] * (ABNORMAL) Basic metabolic panel (03/09/2025 12:36 PM EDT) [facility] Sodium 137 133 - 145 mmol/L LAB CHEMISTRY METHOD 03/09/2025 1:57 PM EDT [facility] Potassium 4.2 3.5 - 5.5 mmol/L LAB CHEMISTRY METHOD 03/09/2025 1:57 PM EDT [facility] Comment:Hemolysis present Chloride 106 96 - 110 mmol/L LAB CHEMISTRY METHOD 03/09/2025 1:57 PM EDT [facility] CO2 25 21 - 32 mmol/L LAB CHEMISTRY METHOD 03/09/2025 1:57 PM EDT [facility] Anion Gap 6 3 - 11 LAB CHEMISTRY METHOD 03/09/2025 1:57 PM EDT [facility] Glucose 177(H) 70 - 100 mg/dL LAB CHEMISTRY METHOD 03/09/2025 1:57 PM EDT [facility] BUN 27(H) 5 - 25 mg/dL LAB CHEMISTRY METHOD 03/09/2025 1:57 PM EDT [facility] Creatinine 0.93 0.50 - 1.10 mg/dL LAB CHEMISTRY METHOD 03/09/2025 1:57 PM EDT [facility] eGFR 59(L) >=60 mL/min/1. 73m2 LAB CHEMISTRY METHOD 03/09/2025 1:57 PM EDT [facility] Comment:Calculation based on the Chronic Kidney Disease Epidemiology Collaboration (CKD-EPI) equation refit without adjustment for race. BUN/Creatinine Ratio 29.0 LAB CHEMISTRY METHOD 03/09/2025 1:57 PM EDT [facility] Calcium 9.2 8.5 - 10.5 mg/dL LAB CHEMISTRY METHOD 03/09/2025 1:57 PM EDT [facility] Blood Venous blood specimen / Unknown Venipuncture / Unknown 03/09/2025 12:36 PM EDT 03/09/2025 1:13 PM EDT us Katey Mckeon DO LAB BLOOD ORDERABLES Olivia l Result [facility] [address] [place] [address], [place] [phone] from Last 3 Months Insurance [employer] Care Teams [facility] Dentist Relationship Specialty Start Date End Date Elena Chowdary MD [address] [place] [id number] PCP - General 06/20/17
--- OUTSIDE RECORDS SUMMARY | 2025-06-09 12:56 | XMS_ITS | Clinical Summary ---
Author Organization [facility] Address [address] [place] [phone] Phone Care Team Providers Care Account Executive [employer] Name Role Phone Elena Chowdary MD Primary Care Provider [phone] Allergies Active Allergy Reactions Criticality Noted Date [...] next visit. 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 Immunizations Immunization Administration Dates Next Due Pneumococcal Polysaccharide 12/14/2011 [...] 04/08/2020 12:00 PM EDT Plan of Treatment Health Maintenance Due Date Last Done Comments Pneumococcal Vaccine: 50+ Ye ars (2 of 2 - PCV) 12/13/2012 12/14/2011 Influenza Vaccine (#1) 2025 Pneumococcal Vaccine: Peds ( 0 to 5 Years) and At-Risk Patients (6 to 49 Years) Discontinued 12/14/2011 Hepatitis B Vaccine Aged Out No longe r eligible based on patient's age to complete this topic Insurance [employer] Care Teams Account Executive [employer] Relationship Specialty Start Date End Date Elena Chowdary MD [address] [place] [address], [address] [place] [address] PCP - General 10/25/20
== END 2025-06-09 12:25 | disposition home or self-care (01) ==
LOC: HO.HKAS 12:04
PROVIDERS: PCP Internal Medicine; Visit Provider Internal Medicine Nephrology
DX: I10 Essential (primary) hypertension (principal)
CPT/HCPCS: 99214

== ENCOUNTER → 2025-06-09 12:03 | Outpatient (BNVA) | payer MEDICARE, MEDICAID, SELFPAY | PROVIDERS: PCP Internal Medicine; Visit Provider Internal Medicine Nephrology | DX: I10 Essential (primary) hypertension (principal) | CPT/HCPCS: 99212 ==